=== PATIENT | female | born 1985 | race Caucasian/White ===

== ENCOUNTER → 2017-11-22 15:44 | Outpatient (CLI) | payer OTHER, SELFPAY ==
[2017-11-22 17:56] LABS: Absolute Lymphocyte Count 1.97 X10^3/ul (0.83-4.51); Absolute Neutrophil Count 3.7 X10^3/uL (2.0-7.7); Basophil# 0.02 X10^3/uL; Basophil% 0.3 % (0-1); Eosinophil# 0.26 X10^3/uL; Eosinophils% 4.1 % (0-5); Hematocrit 41.1 % (37-47); Hemoglobin 13.3 g/dl (12.0-15.0); Lymphocyte # 1.97 X10^3/ul (4.0); Lymphocyte % 31.1 % (19-41); Mean Corp Hgb Conc 32.4 g/gl (32-36); Mean Corpuscular Hgb 28.5 pg (27.0-32.0); Mean Corpuscular Volume 88.2 fL (81-99); Mean Platelet Vol. 11.6 fl (6.2-12.0); Monocyte# 0.42 X10^3/uL; Monocyte% 6.6 % (0-10); Neutrophil # 3.65 X10^3/uL (2.7-7.7); Neutrophil % 57.7 % (47-70); POSITIVE COUNT NO; POSITIVE DIFFERENTIAL NO; POSITIVE MORPHOLOGY NO; Platelet Count 256 K/mm3 (150-450); RBC Distribution Width CV 14.8 % (11.6-14.6); RBC Distribution Width SD 47.2 fl (35.1-43.9); Red Blood Count 4.66 M/mm3 (4.2-5.4); White Blood Count 6.3 K/mm3 (4.4-11.0)
[2017-11-22 18:13] LABS: AST(SGOT) 29 U/L (15-37); Alanine Aminotransfer ALT/SGPT 52 U/L (13-56); Albumin, Serum 3.8 g/dL (3.2-5.0); Alkaline Phosphatase 75 U/L (45-117); Anion Gap 7 (5-15); BUN 14 mg/dL (7-18); Chloride 103 mmol/L (98-107); EST Glomerular Filtration Rate 102 mL/min (>60); Est Glom Filt Rate - Afr Amer 123 mL/min (>60); Globulin 3.7 g/dL (2.2-4.2); Glucose 83 mg/dL (74-106); Potassium 3.7 mmol/L (3.5-5.1); Protein, Total 7.5 g/dL (6.4-8.2); Sodium Level 138 mmol/L (136-145)
== END ==
PROVIDERS: Family Provider Physician Assistant; PCP Physician Assistant; Visit Provider Internal Medicine Rheumatology
DX: M06.4 Inflammatory polyarthropathy (principal); M32.9 Systemic lupus erythematosus, unspecified; M25.561 Pain in right knee; Z79.899 Other long term (current) drug therapy
CPT/HCPCS: 36415; 80053; 85025

== ENCOUNTER → 2019-01-24 | Outpatient (CLI) | payer OTHER, SELFPAY ==
[2019-01-24 16:21] LABS: Bacteria 0 SEEN /hpf (None Seen); Mucous, Urine 0 SEEN /hpf (<or=2+); Red Blood Cells-Urine 0 SEEN /hpf (0-5); White Blood Cells 0 SEEN /hpf (0-5)
[2019-01-24 17:48] LABS: Hematocrit 42.9 % (37-47); Hemoglobin 13.7 g/dl (12.0-15.0); Mean Corp Hgb Conc 31.9 g/gl (32-36); Mean Corpuscular Hgb 27.2 pg (27.0-32.0); Mean Corpuscular Volume 85.3 fL (81-99); Mean Platelet Vol. 11.4 fl (6.2-12.0); Platelet Count 267 K/mm3 (150-450); RBC Distribution Width CV 15.1 % (11.6-14.6); RBC Distribution Width SD 46.6 fl (35.1-43.9); Red Blood Count 5.03 M/mm3 (4.2-5.4); White Blood Count 8.2 K/mm3 (4.4-11.0)
[2019-01-24 17:50] LABS: Scan Indicated on CBC? Y/N NO
[2019-01-24 17:56] LABS: Erythrocyte Sedimentation Rate 29 mm/hr (0-20)
[2019-01-24 18:01] LABS: Color, Urine Yellow (Yellow); Glucose, Dipstick Normal (Normal); Ketone-Dipstick Negative (Negative); Leukocyte Esterase-Dipstick Negative /ul (Negative); Nitrite-Dipstick Negative (Negative); Occult Blood-Urine Negative /ul (Negative); Protein-Dipstick Negative (Negative); Urine Bilirubin Dipstick Negative (Negative); Urine Clarity Sl. Cloudy (Clear); Urine Urobilinogen 1 mg/dl (Normal)
[2019-01-24 18:11] LABS: Squamous Epithelial Cells - UA 0-5 SEEN /hpf (5-10)
[2019-01-24 18:47] LABS: Vitamin B12 405 pg/mL (211-911); Vitamin D,25 Hydroxy 19.8 ng/mL (29.95-100.01)
[2019-01-24 18:55] LABS: ALB/GLOB Ratio 0.8 RATIO (0.9-2.4); AST(SGOT) 24 U/L (15-37); Alanine Aminotransfer ALT/SGPT 49 U/L (13-56); Albumin, Serum 3.5 g/dL (3.2-5.0); Alkaline Phosphatase 78 U/L (45-117); Anion Gap 8 (5-15); BUN 14 mg/dL (7-18); BUN/Creat Ratio 18.2 RATIO (10-20); CPK Total, Creatine Kinase 55 U/L (26-192); Calcium,Total 8.7 mg/dL (8.5-10.1); Chloride 105 mmol/L (98-107); Creatinine, Serum 0.77 mg/dL (0.55-1.02); EST Glomerular Filtration Rate 91 mL/min (>60); Est Glom Filt Rate - Afr Amer 110 mL/min (>60); Globulin 4.3 g/dL (2.2-4.2); Glucose 78 mg/dL (74-106); Potassium 3.6 mmol/L (3.5-5.1); Protein, Total 7.8 g/dL (6.4-8.2); Rheumatoid Factor < 10.0 IU/mL (<15); Sodium Level 139 mmol/L (136-145); Thyroid Stim Hormone (TSH) 2.21 uIU/mL (0.358-3.74); Uric Acid 6.2 mg/dL (2.6-6.0)
[2019-01-28 14:06] LABS: Vitamin D 1,25-Dihydroxy 63.1 pg/mL (19.9-79.3)
[2019-01-28 16:07] LABS: Albumin 3.5 g/dL (2.9-4.4); Alpha-1-Globulins 0.3 g/dL (0.0-0.4); Alpha-2-Globulins 0.9 g/dL (0.4-1.0); Gamma Globulin 1.4 g/dL (0.4-1.8); Immunoglobulin A 284 mg/dL (87-352); Immunoglobulin G 1140 mg/dL (700-1600); Immunoglobulin M 142 mg/dL (26-217); PROEL- TOTAL PROTEIN 7.2 g/dL (6.0-8.5)
[2019-01-29 16:00] LABS: ANTINUCLEAR ANTIBODIES DIRECT Positive (Negative)
[2019-01-31 16:07] LABS: Angiotensin Convert Enzyme 60 U/L (14-82); Complement C3 155 mg/dL (82-167); Cytoplasmic Ab (C-ANCA) <1:20 titer (Neg:<1:20); HEPATITIS B SURFACE AG Negative (Negative); Hepatitis A AB, Total Negative (Negative); Hepatitis A IgM Antibody Negative (Negative); Hepatitis B Core AB IgM Negative (Negative); Hepatitis B Core Ab Total Negative (Negative); Hepatitis C Ab <0.1 s/co ratio (0.0-0.9)
[2019-01-31 16:34] LABS: CCP IgG Antibodies > 250 units (0-19); HLA B27 Negative (.); Hep B Surface Antibodies Non Reactive (.); Perinuclear Ab (P-ANCA) <1:20 titer (Neg:<1:20); Vitamin B1, Thiamine 118.9 nmol/L (66.5-200.0); t-Transglutaminase IgA <2 U/mL (0-3)
== END | disposition home or self-care (01) ==
PROVIDERS: Family Provider Physician Assistant; PCP Physician Assistant; Referring Provider Internal Medicine Rheumatology; Visit Provider Internal Medicine Rheumatology
DX: M54.9 Dorsalgia, unspecified (principal); R20.2 Paresthesia of skin; M75.22 Bicipital tendinitis, left shoulder; M25.511 Pain in right shoulder; M25.512 Pain in left shoulder; G89.29 Other chronic pain; M89.9 Disorder of bone, unspecified; M94.9 Disorder of cartilage, unspecified; M77.01 Medial epicondylitis, right elbow; R29.898 Other symptoms and signs involving the musculoskeletal system; M25.531 Pain in right wrist; M75.50 Bursitis of unspecified shoulder; R53.83 Other fatigue; M32.9 Systemic lupus erythematosus, unspecified; E66.9 Obesity, unspecified; G56.01 Carpal tunnel syndrome, right upper limb; M79.641 Pain in right hand; Z79.1 Long term (current) use of non-steroidal anti-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 (NSAID); Z87.39 Personal history of other diseases of the musculoskeletal system and connective tissue
CPT/HCPCS: 36415; 80053; 81001; 81374; 82164; 82306; 82550; 82595; 82607; 82652; 82746; 82784; 83516; 83735; 84165; 84425; 84443; 84550; 85027; 85652; 86038; 86140; 86160; 86200; 86256; 86334; 86431; 86704; 86705; 86706; 86708; 86709; 86803; 87086; 87088; 87340

== ENCOUNTER → 2019-01-29 | Outpatient (CLI) | payer OTHER, SELFPAY ==
--- NOTE | 2019-01-29 16:00 | RAD_ITS ---
STUDY: X-RAY - RIGHT WRIST REASON FOR EXAM: Female, 33 years old. Pain TECHNIQUE: 2 view(s) of the wrist were obtained. COMPARISON: None. FINDINGS: There is no evidence of fracture or dislocation. There are no significant degenerative changes. There are no radiodense foreign bodies. RAD/Wrist 2 Views IMPRESSION: No fracture or dislocation. Electronically Signed: Fam Longo, at 17:10 EDT Tel , Service support ,
--- NOTE | 2019-01-29 16:00 | RAD_ITS ---
STUDY: X-RAY - LEFT ANKLE REASON FOR EXAM: Female, 33 years old. Pain TECHNIQUE: 2 view(s) of the ankle. COMPARISON: None. FINDINGS: There is no evidence of fracture or dislocation. Mild degenerative changes are present at the medial and lateral talar articulations. Hypertrophic changes are present at the Achilles tendon insertion. There are no radiodense foreign bodies. RAD/Ankle 2 Views IMPRESSION: No fracture or dislocation. Degenerative changes described above. Electronically Signed: Fam Longo, at 17:12 EDT Tel , Service support ,
--- NOTE | 2019-01-29 16:00 | RAD_ITS ---
STUDY: X-RAY - RIGHT SHOULDER REASON FOR EXAM: Female, 33 years old. Pain TECHNIQUE: 4 view(s) of the shoulder. COMPARISON: None. FINDINGS: There is no evidence of fracture or dislocation. There are no significant degenerative changes. There are no radiodense foreign bodies. RAD/Shoulder min 2 Views IMPRESSION: No fracture or dislocation. Electronically Signed: Fam Longo, at 17:07 EDT Tel , Service support ,
--- NOTE | 2019-01-29 16:00 | RAD_ITS ---
HISTORY: Back pain. Exam is 3 images of the SI joints. No comparisons. Findings: SI joints are symmetric. An IUD is present centrally within the pelvis likely within the uterine fundus. Degenerative disc disease with loss of disc height, endplate sclerosis, and small enthesophytes at the L4-L5 level. Hips appear normal. RAD/S-I Jts 3 or More Views IMPRESSION: Minimal SI joint arthritis. at 0222 Reported and signed by: Mikhail Pineda MD Electronically Signed: Mikhail Pineda MD at 2:21 EDT Tel , Service support ,
--- NOTE | 2019-01-29 16:00 | RAD_ITS ---
STUDY: X-RAY - RIGHT HAND REASON FOR EXAM: Female, 33 years old. Pain TECHNIQUE: 3 view(s) of the hand. COMPARISON: None. FINDINGS: There is no evidence of fracture or dislocation. There are no significant degenerative changes. There are no radiodense foreign bodies. RAD/Hand Min 3 Views IMPRESSION: No fracture or dislocation. Electronically Signed: Fam Longo, at 17:10 EDT Tel , Service support ,
--- NOTE | 2019-01-29 16:00 | RAD_ITS ---
STUDY: X-RAY - RIGHT ANKLE REASON FOR EXAM: Female, 33 years old. Pain TECHNIQUE: 2 view(s) of the ankle. COMPARISON: None. FINDINGS: There is no evidence of fracture or dislocation. Mild degenerative changes are present at the medial and lateral talar articulations. Hypertrophic changes are present at the Achilles tendon insertion. There are no radiodense foreign bodies. RAD/Ankle 2 Views IMPRESSION: No fracture or dislocation. Mild degenerative changes described above. Electronically Signed: Fam Longo, at 17:11 EDT Tel , Service support ,
--- NOTE | 2019-01-29 16:00 | RAD_ITS ---
HISTORY: back pain COMPARISON: None FINDINGS: # of images incl. paperwork: 5 XR Spine Lumbar 5 Views: An IUD is present centrally within the pelvis, likely within the uterine fundus Lumbar vertebral bodies are normal in height. Lumbar disc spaces are well maintained. No acute lumbar spine fracture or subluxation. There is loss of intervertebral disc height at the L4-L5 and L5-S1 levels. There is also some loss of disc height at the T11-T12 level. Very small enthesophytes are present anteriorly at the inferior endplate of L4, and the superior endplate of L5 RAD/L/S Spine Min 4 Views IMPRESSION: No acute lumbar spine fracture or subluxation. Mild degenerative disc disease, greatest at the L4-L5 level. at 0221 Reported and signed by: Mikhail Pineda MD Electronically Signed: Mikhail Pineda MD at 2:20 EDT Tel , Service support ,
--- NOTE | 2019-01-29 16:00 | RAD_ITS ---
STUDY: X-RAY - LEFT SHOULDER REASON FOR EXAM: Female, 33 years old. Pain TECHNIQUE: 4 view(s) of the shoulder. COMPARISON: None. FINDINGS: There is no evidence of fracture or dislocation. There are no significant degenerative changes. There are no radiodense foreign bodies. RAD/Shoulder min 2 Views IMPRESSION: No fracture or dislocation. Electronically Signed: Fam Longo, at 17:09 EDT Tel , Service support ,
== END | disposition home or self-care (01) ==
LOC: MTRAD 15:52
PROVIDERS: Family Provider Physician Assistant; PCP Physician Assistant; Referring Provider Internal Medicine Rheumatology; Visit Provider Internal Medicine Rheumatology
DX: M54.9 Dorsalgia, unspecified (principal); R20.2 Paresthesia of skin; M75.22 Bicipital tendinitis, left shoulder; G89.29 Other chronic pain; M25.511 Pain in right shoulder; M25.512 Pain in left shoulder; M89.9 Disorder of bone, unspecified; M94.9 Disorder of cartilage, unspecified; M77.01 Medial epicondylitis, right elbow; M25.521 Pain in right elbow; R29.898 Other symptoms and signs involving the musculoskeletal system; M25.531 Pain in right wrist; M75.50 Bursitis of unspecified shoulder; R53.83 Other fatigue; Z87.39 Personal history of other diseases of the musculoskeletal system and connective tissue; M32.9 Systemic lupus erythematosus, unspecified; Z79.1 Long term (current) use of non-steroidal anti-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 (NSAID); E66.9 Obesity, unspecified; G56.01 Carpal tunnel syndrome, right upper limb; M25.571 Pain in right ankle and joints of right foot; M25.572 Pain in left ankle and joints of left foot; M79.641 Pain in right hand
CPT/HCPCS: 72110; 72202; 73030; 73100; 73130; 73600

== ENCOUNTER 2022-08-05 07:16 | Day surgery (SDC) | payer OTHER, SELFPAY ==
[2022-08-05 07:56] LABS: Internal QC Validated? YES +Cl - CLEAR BKGD; Pregnancy, Urine Negative Negative
[2022-08-05 08:01] VITALS: BP 124/91; PULSE 72; RESP 16; TEMP 36.6; O2SAT 97; BMI 34.0
[2022-08-05] MEDS: Lactated Ringers 1,000 ML 15 ML IV (08:07)
--- NOTE | 2022-08-05 08:41 | PCM.HP.BLA ---
History and Physical Date of Admission: 08/05/22 Date of Service:? 07/29/22 MR#: [id number] Acct: [id number] Name:CODI STAUFFER Rep #: [id number] : 1985 ? ? Provider: Dr. Diego Yoon MD Age/Sex:? 37/F ? ? [place] [facility] [place] Status: Signed with Addenda ADDENDUM by Dr. Diego Yoon MD on 07/29/22 at 1725 Intake Chief Complaint: perineal abcess Allergies etanercept [From Enbrel] Allergy (Mild, Verified 11/25/21 09:21) Other Medications Hydrocortisone 2.5%/lidocaine 5% suppository (cmpd) (hydrocortisone 2.5%/lidocaine 5% suppository (compound)) #25 ea 11/12/21 [Rx Confirmed 07/29/22] allopurinol 100 mg tablet 100 mg PO BID 11/12/21 [History Confirmed 07/29/22] cholecalciferol (vitamin D3) 125 mcg (5,000 unit) capsule 125 mcg PO DAILY 11/12/21 [History Confirmed 07/29/22] colchicine 0.6 mg tablet 0.6 mg PO DAILY 11/12/21 [History Confirmed 07/29/22] folic acid 1 mg tablet 1 mg PO DAILY 11/12/21 [History Confirmed 07/29/22] gabapentin 100 mg capsule (Neurontin) 100 mg PO DAILY 11/12/21 [History Confirmed 07/29/22] methotrexate (PF) 7.5 mg/0.15 mL subcutaneous auto-injector 7.5 mg subcut QWEEK 11/12/21 [History Confirmed 07/29/22] rivaroxaban 20 mg tablet (Xarelto) 20 mg PO DAILY 11/12/21 [History Confirmed 07/29/22] Assessment and Plan Assessment and Plan (1) Anal fistula: ?Status:?Resolved ?Comment: This is a 37-year-old female with a history of perirectal abscess and fistula in ano treated remotely 12 to 15 years ago with fistulotomy at [facility] who presents with 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 This area appears to be freely draining posteriorly.? At this time she remains on Xarelto anticoagulation and I am reluctant to perform much intervention with this bleeding risk.? Furthermore, I have suggested we proceed for exam under anesthesia to determine if there is an internal opening to this fistula that may be looped with a seton drain.? In the interim I have cautioned the patient against signs and symptoms of perirectal abscess and urged her to present for emergent evaluation should she experience any of these issues.? Should the above exam under anesthesia be unfruitful, patient may require referral to dedicated colorectal specialist given her history of prior incidence. Comments Comments: I did have a conversation with patient regarding her increased risk for anorectal problems/abscesses and that this risk is heightened by her chronic use of tobacco. 07/29/221724 <Electronically signed by Diego Yoon MD> Date Diego Yoon MD cc: ? YOHANA Mccollum ~* Signed Intake Vital Signs ? 07/29/2214:15 Respiration 17 Pulse 64 Pulse Source Monitor Temp 98 F Temp Source Oral Pulse Oximetry (%) 99 Oxygen Delivery Method room air Intake Visit Reasons:?PERINEAL ABSCESS Chief Complaint: perineal abcess Allergies etanercept [From Enbrel] Allergy (Mild, Verified 11/25/21 09:21) Other Medications Hydrocortisone 2.5%/lidocaine 5% suppository (cmpd) (hydrocortisone 2.5%/lidocaine 5% suppository (compound)) #25 ea 11/12/21 [Rx Confirmed 07/29/22] allopurinol 100 mg tablet 100 mg PO BID 11/12/21 [History Confirmed 07/29/22] cholecalciferol (vitamin D3) 125 mcg (5,000 unit) capsule 125 mcg PO DAILY 11/12/21 [History Confirmed 07/29/22] colchicine 0.6 mg tablet 0.6 mg PO DAILY 11/12/21 [History Confirmed 07/29/22] folic acid 1 mg tablet 1 mg PO DAILY 11/12/21 [History Confirmed 07/29/22] gabapentin 100 mg capsule (Neurontin) 100 mg PO DAILY 11/12/21 [History Confirmed 07/29/22] methotrexate (PF) 7.5 mg/0.15 mL subcutaneous auto-injector 7.5 mg subcut QWEEK 11/12/21 [History Confirmed 07/29/22] rivaroxaban 20 mg tablet (Xarelto) 20 mg PO DAILY 11/12/21 [History Confirmed 07/29/22] [facility] Medical History? Anal fistula DVT (deep vein thrombosis) in Gout Lupus Rheumatoid arthritis Surgical History? History of rectal surgery Social History? Smoking Status:? Current every day smoker alcohol intake:? current alcohol intake frequency: a few times a month HPI HPI HPI: Patient is a 37-year-old female who presents for perineal abscess.? They are referred from most [facility].? Patient states that she believes this drainage started 2 weeks ago when she was at work and felt something bust and then had bloody pants.? She reports drainage that is variably clear, orange, or yellowish.? She denies any foul odor to this drainage.? She states she has an exceptionally difficult time seeing where it is coming from.? She does report a history of prior perirectal abscess drained in [place] and fistulotomy at [facility] 12 to 15 years ago.? She also reports a colonoscopy within the last 2 years where 18 polyps were found?she confirms most of these were hyperplastic.? She has no personal history of inflammatory bowel disease, but does have a first cousin on her paternal side with Crohn's.? She reports her own bowel movements occur approximately 1 time per day but the consistency is highly variable.? She denies any observation of blood.? She states that since her treatment of perirectal abscesses, she has seen providers for concerns of hemorrhoids (Dr. uTrner) and anal fissure.? Regarding the latter, she states that she has been prescribed a cream and a suppository and this provided temporary relief that ultimately did not last.? She continues to experience some burning in this area with bowel movements. Patient has a history of DVT 2 to 4 years ago.? She is prescribed scribed Xarelto for a history of lupus anticoagulant.? She states that this is now managed by [facility].? She denies ever having held this medication for another procedure. Lastly confirms a history of tobacco use.? She states that she is averaged approximately 1 pack/day over the last 20 years. ROS General General: Yes weight change; No appetite, fatigue, colon cancer or breast cancer HEENT HEENT: No difficulty swallowing, eye injury, eye surgery, swollen glands or hoarseness Endo Endocrine: No thyroid disease, diabetes mellitus, thyroid cancer, Hair loss, heat intolerance or cold intolerance Skin Skin: No rash or changing moles Musc Musculoskeletal: Yes rheumatoid arthritis; No back problems, arthritis, gout or joint pain Cardio Cardiovascular: No murmur, pacemaker, heart disease, atrial fibrillation, high blood pressure, heart attack, heart stent, palpitations, shortness of breat with exertion or chest pain Psych Psychiatric: No depression, anxiety or hearing voices Gastro Gastrointestinal: No abdominal pain, No nausea or vomiting, No diarrhea, No constipation, No blood in stool, No acid reflux, Yes hemorrhoids, No ulcers, No gallbladder problem and No black,tarry stools [place] Hematologic: Yes blood thinners and Yes blood clots Additional Details: h/o leg clot Neuro Neurologic: Yes system reviewed and no additional complaints, except as documented Exam Const General: cooperative and anxious Orientation: alert, awake and oriented x3 GI Inspection: obesity and no visible herniation Palpation: soft Rectal Exam: normal sphincter tone, tenderness (Right lower quadrant), visual inspection abnormal fissure (Posteriorly) and other (Draining perirectal opening directly posteriorly with thin brown fluid) and other (Patient with moderate tenderness with palpation during digital rectal ) Assessment and Plan Assessment and Plan (1) Anal fistula: ?Status:?Resolved ?Comment: This is a 37-year-old female with a history of perirectal abscess and fistula in ano treated remotely 12 to 15 years ago with fistulotomy at [facility] who presents with 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 This area appears to be freely draining posteriorly.? At this time she remains on Xarelto anticoagulation and I am reluctant to perform much intervention with this bleeding risk.? Furthermore, I have suggested we proceed for exam under anesthesia to determine if there is an internal opening to this fistula that may be looped with a seton drain.? In the interim I have cautioned the patient against signs and symptoms of perirectal abscess and urged her to present for emergent evaluation should she experience any of these issues.? Should the above exam under anesthesia be unfruitful, patient may require referral to dedicated colorectal specialist given her history of prior incidence. ?Plan: ? Seek approval for [facility] hold ? Arrange for exam under anesthesia with possible seton placement I have examined the patient and the H&P has been reviewed. There are no clinical changes since date of exam. I reviewed expectations with the patient and her spouse. We will plan for exam under anesthesia. If an internal anal opening is found we will place a seton drain, otherwise I would not plan to proceed further as patient has a history of prior fistulotomy and did not want to incur risk for either anal stenosis or sphincter incompetence. Patient expressed an understanding of this information. Therefore we will proceed to the operating room for exam as discussed above.
[2022-08-05] MEDS: Cefazolin 2 GM in 0.9% Normal Saline 100 ML IV (09:10)
[2022-08-05 10:35] VITALS: BP 124/91; BP 145/90; PULSE 82; RESP 20; TEMP 36.3; O2SAT 88
[2022-08-05 10:45] VITALS: BP 124/91; BP 151/86; PULSE 66; RESP 18; O2SAT 100
[2022-08-05 11:00] VITALS: BP 124/91; BP 143/83; PULSE 76; RESP 18; O2SAT 96
--- NOTE | 2022-08-05 11:10 | PCM.OPRPT ---
Report of Operation Date of Procedure: 08/05/22 Pre-Operative Diagnosis: 1. Fistula in ano 2. History of fistula in anal status post prior fistulotomy Post-Operative Diagnosis: Same Surgery/Procedure Performed:: 1. Anorectal exam under anesthesia 2. Partial unroofing of fistula tract Description of Surgical Findings:: ? Demonstration of fistula track towards the anal canal and a Ross sphincteric course exceeding 6.5 cm in length. No internal anal opening could be demonstrated Surgeon: Diego Yoon orange picking supervisor: Keyla Tran Type of Anesthesia: General/Supplemental Anesthesiologist: Luis Eduardo Marques Specimen's removed: N/A Drains: N/A Estimated Blood Loss (mL): 10 Description of Procedure: After appropriate identification in the preoperative holding area the patient was brought to the operating room where she was positioned supine. She was administered preoperative antibiotics and induced with a general endotracheal anesthetic. She was then repositioned in lithotomy with leg holders. Her vulva, perineal area and perianal area were prepped and draped. A formal timeout was conducted to confirm the patient and the procedure to be performed. The procedure was begun with insertion of a lubricated Bryan-Sheron retractor. This retractor was oriented in such a way as to expose the inner aspect of the anal canal subjacent the patient's chronic wound posteriorly. Immediately I noticed a break in the patient's anoderm posteriorly where it appeared there is just exposed sphincter muscle. I assume this to represent patient's prior fistulotomy tract. The external opening for the anal fistula was located at the 6 o'clock position approximately a centimeter and a half from the anus. I then used a series of lacrimal probes to probe the wound and assess whether there was tracking towards the canal. The probe passed a distance of 2 cm, but no further despite multiple diameter probes. I then did a second fistula test by inserting a 14-gauge angiocatheter attached to a syringe of hydrogen peroxide. The tip of the angiocatheter, likewise, did not pass beyond this depth and when I injected the sinus with hydrogen peroxide I was unable to visualize any bubbling within the anal canal. Therefore this attempt was abandoned and I tried once more with the lacrimal probes. This time, not exerting any additional pressure, the probe advanced an additional 4 cm towards the anal canal. At this distance I was not able to see into the anal canal even with repositioning Hill-Holbrook retractor, but inserting a gloved finger I could feel the lacrimal probe just beneath the mucosa. Unfortunately despite multiple attempts at redirecting the probe I was not able to demonstrate an internal opening. I made an additional attempt at injecting the tract with hydrogen peroxide and again could not visualize hydrogen peroxide within the anal canal. I did observe that this fistula tract appeared to be transphincteric in its course and a scented for a distance of 6.5 cm?to the furthest reach of our medium size lacrimal probe. In an effort to promote better drainage of the patient's wound and hopefully remove some of the epithelialization, I chose to unroofed part of the fistula tract as it approached the sphincter complex sharply. I then performed a curettage of the inner lining of the patient's sinus tract. To assist with patient's postoperative discomfort, I instilled a total volume of 30 mL's of 0.25% plain bupivacaine as a intersphincteric and pudendal block. To facilitate hemostasis, the cavity was packed with quarter inch iodoform gauze. Lastly 3 gauze rolls were made and taped as a compressive/absorbent dressing over the patient's surgical site. Case was then concluded and the patient was awakened and transferred to PACU for ongoing recovery. Complications None Admit VTE Documentation VTE Mechan Device Prophylaxis: SCD's Procedures Digestive [id number]-[id number]: 05605 Surg dx exam anorectal
[2022-08-05 11:14] VITALS: BP 124/91; BP 150/85; PULSE 67; RESP 18; TEMP 36.4; O2SAT 95
--- NOTE | 2022-08-05 11:41 | DCINST_ITS ---
Discharge Instructions Diet Discharge Diet: No restrictions Activity Discharge Activity: May Not Drive (No driving while using narcotic pain medication) and May Shower Dressing / Incision Call your doctor if your incision/area has: Continuous Slow Oozing, Sudden Increased Bleeding, Increased Redness and Foul Smelling Discharge Call your doctor if you observe: Fever of 101 or Higher Change Dressing in: 1 day Remove Dressing in: 1 day (Remove packing strip tomorrow) Cleanse incision/area with: Soap & Water and - (Recommend twice daily sitz bath's and after bowel movements. Dry thoroughly) Follow Up Care Please Follow Up With: Diego Yoon MD When: 7 to 10 days postop Test Results: Test results from this visit will be discussed in further detail at your follow- up appointment, if applicable. Discharge Plan Admission Primary Reason for Your Visit: Anal fistula Attending Provider: Diego Yoon Primary Care Provider: Klarissa Mccollum Instructions Additional Instructions / Restrictions: Patient should plan to do sitz bath's twice daily. May add Epson salts to warm water. Recommend drying thoroughly. Patient should keep a pad in her underwear to collect any drainage for the first couple days postop. Patient should ensure complete hygiene following bowel movements as well. If narcotic pain medication is required, recommend initiation of laxative agent alongside of this to avoid constipation. Discharge Orders/Prescriptions Prescriptions: New oxycodone 5 mg tablet 5 mg PO Q6H PRN (Reason: pain) 3 Days Qty: 14 0RF Continued cholecalciferol (vitamin D3) 125 mcg (5,000 unit) capsule 125 mcg PO DAILY Xarelto 20 mg tablet 20 mg PO DAILY Rx Instructions: must administer with evening meal (DME) hydrocortisone 2.5%/lidocaine 5% suppository (compound) Suppository See Rx Instructions .ROUTE .MEDSUPPLY Qty: 25 1RF Rx Instructions: As directed bupropion HCl [Wellbutrin SR] 150 mg Tablet Sustained-Release 12 Hr 150 mg PO BID omeprazole magnesium [Prilosec OTC] 20 mg Tablet,Delayed Release (Dr/Ec) 20 mg PO DAILY Referrals / Follow Up: Klarissa Mccollum PA [Primary Care Provider] - Disposition Disposition (needs filled in before D/C Order can be placed): Home, Self Care
[2022-08-05 12:00] VITALS: BP 121/78; BP 124/91; PULSE 68; RESP 16; TEMP 36; O2SAT 99
== END 2022-08-05 12:19 | disposition home or self-care (01) ==
LOC: SDC 07:16 → AC 07:17
PROVIDERS: Anesthesiology; PCP Physician Assistant; Referring Provider Surgery; Visit Provider Surgery
PROC: (CPT 45990; principal; 2022-08-05 08:45)
DX: K61.1 Rectal abscess (principal); M32.9 Systemic lupus erythematosus, unspecified; M06.9 Rheumatoid arthritis, unspecified; K64.9 Unspecified hemorrhoids; F17.210 Nicotine dependence, cigarettes, uncomplicated; L02.215 Cutaneous abscess of perineum; K21.9 Gastro-esophageal reflux disease without esophagitis
CPT/HCPCS: 45990; 00902; 81025; J7120; J2405

== ENCOUNTER 2023-08-24 13:58 | Emergency (ER) | payer OTHER, SELFPAY ==
[2023-08-24 13:59] VITALS: BP 172/102; PULSE 94; RESP 16; TEMP 36.4; O2SAT 100; BMI 46.8
[2023-08-24 14:46] LABS: ALB/GLOB Ratio 0.9 RATIO (0.9-2.4); AST(SGOT) 23 U/L (15-37); Alanine Aminotransfer ALT/SGPT 42 U/L (13-56); Albumin, Serum 3.4 g/dL (3.2-5.0); Alkaline Phosphatase 75 U/L (45-117); Anion Gap 7 (5-15); BUN 10 mg/dL (7-18); BUN/Creat Ratio 12.7 RATIO (10-20); Calcium,Total 8.8 mg/dL (8.5-10.1); Chloride 105 mmol/L (98-107); Creatinine, Serum 0.78 mg/dL (0.55-1.02); EST Glomerular Filtration Rate 87 mL/min (>60); Est Glom Filt Rate - Afr Amer 105 mL/min (>60); Estimated Creatinine Clearance 139.43 ml/min; Globulin 3.9 g/dL (2.2-4.2); Glucose 182 mg/dL (74-106); Potassium 3.6 mmol/L (3.5-5.1); Protein, Total 7.3 g/dL (6.4-8.2); Sodium Level 140 mmol/L (136-145)
[2023-08-24 14:47] LABS: Absolute Lymphocyte Count 1.64 X10^3/uL (0.83-4.51); Basophil# 0.03 X10^3/uL; Basophil% 0.5 % (0-1); Eosinophil# 0.17 X10^3/uL; Eosinophils% 2.8 % (0-5); Hematocrit 38.9 % (37-47); Hemoglobin 12.8 g/dL (12.0-15.0); Lymphocyte # 1.64 X10^3/ul (0.83-4.51); Lymphocyte % 26.5 % (19-41); Mean Corp Hgb Conc 32.9 g/dL (32-36); Mean Corpuscular Volume 91.1 fL (81-99); Monocyte# 0.29 X10^3/uL; Monocyte% 4.7 % (0-10); NRBC Flagged by Analyzer 0 % (0-5); Neutrophil # 4.02 X10^3/uL (2.7-7.7); Platelet Count 259 K/mm3 (150-450); RBC Distribution Width CV 14.5 % (11.6-14.6); RBC Distribution Width SD 48.3 fl (35.1-43.9); Red Blood Count 4.27 M/mm3 (4.2-5.4); White Blood Count 6.2 K/mm3 (4.4-11.0)
[2023-08-24 15:07] LABS: BNP,B-Type NATRIURETIC PEPTIDE 36.2 pg/mL (0-100)
--- NOTE | 2023-08-24 15:16 | EDS_ITS ---
HPI History of Present Illness Chief Complaint: Edema Informant: patient Onset/Context/Timing Onset: Month(s) Context: Gradual Onset Timing: Continuous Maximum Severity: Mild Narrative Narrative: 38-year-old female history of lupus and rheumatoid arthritis. States for the last month and a half she has had increased swelling with about 24 pound weight gain. Says she is more short of breath. Denies chest pain. Denies fever. Denies vomiting. History of prior DVT she is currently on Eliquis. No cardiac history. No history of kidney disease. No history of liver failure. Prior similar symptoms: No Recent Illness/Hospitalization: No PFSH PFSH Medical History Alcohol use Anal fistula DVT (deep vein thrombosis) in Gastric reflux Gout History of ulceration Lupus Rheumatoid arthritis Smoker Home Medications Hydrocortisone 2.5%/lidocaine 5% suppository (cmpd) (hydrocortisone 2.5%/lidocaine 5% suppository (compound)) #25 ea 11/12/21 [Rx Last Taken Unknown] rivaroxaban 20 mg tablet (Xarelto) 20 mg PO DAILY 11/12/21 [History Last Taken 08/02/22] omeprazole magnesium 20 mg tablet,delayed release (Prilosec OTC) 20 mg PO DAILY 08/03/22 [History Last Taken Unknown] allopurinol 300 mg tablet 450 mg PO DAILY 08/24/23 [History Last Taken Unknown] lisinopril 10 mg tablet 10 mg PO DAILY 08/24/23 [History Last Taken Unknown] spironolactone 25 mg tablet 25 mg PO DAILY 08/24/23 [History Last Taken Unknown] Allergy/AdvReac Type Severity Reaction Status Date / Time etanercept [From Enbrel] Allergy Mild Other Verified 08/24/23 14:01 Surgical History History of rectal surgery History of rectal surgery Social History Smoking Status: Former smoker alcohol intake: current alcohol intake frequency: a few times a month ROS ROS ED ROS Narrative Swelling. Shortness of breath. Review of Systems ROS Unobtainable: Denies due to encephalopathy Constitutional Constitutional ED: Denies chills or fever(s) Eyes Eyes: Denies blurry vision ENT ENT ED: Denies ear pain Cardiovascular Cardiovascular: Denies chest pain or palpitations Respiratory/Chest Respiratory/Chest: Reports dyspnea and dyspnea on exertion; Denies cough Gastrointestinal Gastrointestinal: Denies abdominal pain, constipation or diarrhea Genitourinary Genitourinary ED: Denies dysuria or hematuria Musculoskeletal Musculoskeletal: Denies arthralgias Integumentary Denies abscess or Abrasions Neurologic Neurologic: Denies headache(s) Psychiatric Psychiatric: Denies anxiety or depression Endocrine Endocrinology: Denies cold intolerance Hematologic/Lymphatic Hematologic/Lymphatic: Reports none; Denies easy bruising Allergic/Immunologic Allergic/Immunologic ED: Denies mouth swelling, tongue swelling or urticaria EXAM Physical Exam Narrative Exam Narrative: 38-year-old female no acute distress. Vital signs are stable afebrile. Pulse ox 100% on room air no hypoxia. Blood pressure is elevated 172/102. She does not look septic toxic. She is in no distress. HEENT exam unremarkable. Neck nontender. Lungs clear to auscultation bilaterally. Heart regular rhythm rate about 95 no murmur. Chest wall and ribs nontender. Abdomen soft nontender. Moving all 4 extremities. 1+ pitting edema bilaterally lower extremities. Calves are nontender without edema. Neurologically she is awake and alert with no focal motor deficits. Const Vital Signs: 08/24/23 13:59 Temperature 97.6 F L Temperature Source Temporal Pulse Rate 94 Respiratory Rate 16 Blood Pressure 172/102 H Blood Pressure Mean 125 Pulse Ox 100 Oxygen Delivery Method Room Air Positive well nourished, well developed and obese; Negative for cachectic, contractures or unkempt General Appearance ED: well developed and NAD; Negative for unkempt, cachectic, contractures, cyanotic, diaphoretic or pallor Nutritional Appearance: obese; Negative for cachectic HEENT Reports moist mucous membranes Negative for trauma or tenderness Eyes PERRL and EOMs intact bilaterally General Eye ED: Negative for pale conjunctiva or scleral icterus Neck no lymphadenopathy, supple and no JVD General: Negative for tenderness Lymph Lymphatic: Negative for other Chest Wall inspection of chest normal and palpation of chest normal Chest: Negative for other Resp normal respiratory effort and clear to auscultation bilaterally Effort and Inspection: Negative for retractions Auscultation: Negative for rales, rhonchi or wheezes Cardio regular rate, regular rhythm, S1 normal heart sound, S2 normal heart sound and no murmurs Palpation: Negative for palpable S3 or palpable S4 Rate: Negative for bradycardia or tachycardic Rhythm: Negative for abnormal rhythm GI normal to inspection, nondistended, normoactive bowel sounds, non-tender, non- distended and no masses Inspection: Negative for abdominal distention Auscultation: normoactive bowel sounds Palpation: Negative for soft, tender or guarding Back/Spine no CVA tenderness General Back: Negative for CVA tenderness Cervical Spine: Negative for cervical spine tenderness Thoracic Spine / Upper Back: Negative for thoracic spinal tenderness Extremity Negative for normal to inspection General Extremety ED: Yes edema; Negative for tenderness General Extremity: edema Neuro oriented x3 and CN's II-XII intact bilaterally Sensorium / Orientation: alert; Negative for orientation impaired, lethargic or stuporous Motor Exam: strength 5/5 throughout Psych mental status grossly normal Appearance: Negative for unkempt Attitude: No agitated Mood & Affect: Negative for depressed, anxious or tearful Skin no rashes or lesions noted, no wounds and skin turgor normal General Skin Exam: Negative for elasticity normal, jaundice or pallor Lesions: No lesion noted Rashes: No rashes noted Trauma: Negative for abrasion Wounds: Negative for wounds noted MDM MDM MDM Narrative Medical decision making narrative: 38-year-old female with a 24 pound weight gain over the last month and a half and retaining fluid in her legs and throughout her body. No history of cardiac disease or kidney disease. History of lupus and rheumatoid arthritis. Screening labs, EKG and chest x-ray being obtained. She is on a blood thinner Eliquis. Repeat exam patient is doing well at 5:40 PM. Her labs are unremarkable I do not have a specific cause for her edema at this time she will be referred. To her primary care physician for further evaluation. History & Record Review Discussion w/independent historian: Patient Additional record(s) reviewed:: Prior inpatient record, Prior outpatient record, Prior ED visit and Prior labs Lab Data Attestation: I reviewed the patient's lab results. Lab results narrative: CBC unremarkable. White count is 6. H&H 12 and 38. Platelets 259. Electrolytes show gap of 7. Glucose 182. Normal BUN of 10 and creatinine 0.78. Glucose 182. Liver enzymes are normal. TSH is normal at 1.74. Chest x-ray is unremarkable. Labs: Laboratory Results - last 24 hr 08/24/23 14:15 WBC 6.2 RBC 4.27 Hgb 12.8 Hct 38.9 MCV 91.1 MCH 30.0 MCHC 32.9 RDW Std Deviation 48.3 H RDW Coeff of [place] 14.5 Plt Count 259 MPV 10.0 Immature Gran % (Auto) 0.500 Neut % (Auto) 65.0 Lymph % (Auto) 26.5 [place] % (Auto) 4.7 Eos % (Auto) 2.8 Baso % (Auto) 0.5 Absolute Neuts (auto) 4.0 Absolute Lymphs (auto) 1.64 Nucleated RBC % 0 Sodium 140 Potassium 3.6 Chloride 105 Carbon Dioxide 28.0 Anion Gap 7 BUN 10 Creatinine 0.78 Estim Creat Clear Calc 139.43 Est GFR (MDRD) Af Amer 105 Est GFR (MDRD) Non-Af 87 BUN/Creatinine Ratio 12.7 Glucose 182 H Calcium 8.8 Total Bilirubin 0.30 AST 23 ALT 42 Alkaline Phosphatase 75 B-Natriuretic Peptide 36.2 Total Protein 7.3 Albumin 3.4 Globulin 3.9 Albumin/Globulin Ratio 0.9 TSH 1.74 Radiography Chest X-Ray - ED: 1 View, Read by ED Physician, Read by Radiologist, Lungs, Mediastinum, Bony Structures, No Acute Disease and Chronic Changes Diagnostic Testing: Clinical Impression(s) from Imaging Studies Chest X-Ray 08/24/23 15:50 IMPRESSION: No acute radiographic abnormalities. Electronically Signed: Rex Francisco MD at 16:16 EST Reading Location ID and State: [address] [place] [address] Tel , Service support , Chest x-ray, portable, single view interpreted by myself and radiologist shows no acute abnormality. Normal cardiac silhouette. No effusions. No failure. Rhythm Strip Rhythm Strip: Sinus Rhythm Rate: 74 Ectopy: None EKG Initial EKG: Attestation: I personally reviewed and interpreted this EKG as follows: Interpretation: Sinus Rhythm and No Acute Injury Pattern Comments: Sinus rhythm rate of 74 no acute signs of [place] or ischemia. Incomplete right bundle branch block. Discharge Plan Triage Chief Complaint: Edema ED Provider: Cornelio Petit Dx/Rx/DC Orders Prescriptions: No Action Xarelto 20 mg tablet 20 mg PO DAILY Rx Instructions: must administer with evening meal (DME) hydrocortisone 2.5%/lidocaine 5% suppository (compound) Suppository See Rx Instructions .ROUTE .MEDSUPPLY Qty: 25 1RF Rx Instructions: As directed omeprazole magnesium [Prilosec OTC] 20 mg Tablet,Delayed Release (Dr/Ec) 20 mg PO DAILY lisinopril 10 mg tablet 10 mg PO DAILY allopurinol 300 mg tablet 450 mg PO DAILY spironolactone 25 mg tablet 25 mg PO DAILY Rx Instructions: stopped taking Primary Care Provider: Klarissa Mccollum Referrals: Klarissa Mccollum PA [Primary Care Provider] -
--- NOTE | 2023-08-24 15:27 | NURSING ---
NO OLD EKGS
--- NOTE | 2023-08-24 15:50 | RAD_ITS ---
INDICATION: sob EXAMINATION/TECHNIQUE: X-RAY - XR Chest 1 View COMPARISON: 05/15/2017. FINDINGS: The lungs are clear. The cardiomediastinal silhouette is unremarkable. No pleural effusion or pneumothorax. No acute osseous abnormalities. RAD/Chest 1 View (Portable) IMPRESSION: No acute radiographic abnormalities. Electronically Signed: Rex Francisco MD at 16:16 EST ,
[2023-08-24 16:10] LABS: Thyroid Stim Hormone (TSH) 1.74 uIU/mL (0.358-3.74)
== END 2023-08-24 18:11 | disposition home or self-care (01) ==
PROVIDERS: Emergency Provider Emergency Medicine; PCP Physician Assistant; Visit Provider Emergency Medicine
DX: R60.9 Edema, unspecified (principal); M06.9 Rheumatoid arthritis, unspecified; Z87.891 Personal history of nicotine dependence; Z86.718 Personal history of other venous thrombosis and embolism; Z79.01 Long term (current) use of anticoagulants; Z79.899 Other long term (current) drug therapy; E66.9 Obesity, unspecified; R06.02 Shortness of breath
CPT/HCPCS: 71045; 80053; 83880; 84443; 85025; 93005; 99282; A4216

== ENCOUNTER → 2023-09-13 | Outpatient (CLI) | payer OTHER, SELFPAY ==
--- OUTSIDE RECORDS SUMMARY | 2023-09-13 16:25 | XMS RPT_ITS | CCD ---
Author Name Unknown Address [address] [place] [address] Organization [facility] Care Team Providers Care Bisque Placer Name Role Phone Brianna Mccollum Primary Care Provider RISA MONTANEZ Attending Unavailable RISA MONTANEZ Primary Care Unavailable RISA MONTANEZ Admitting Unavailable RUPERT SANTOYO Attending Unavail able SIMA MCCOLLUMISSA J Primary Care Unavailable Mccollum, Brianna J Primary Care Provider MccollumSimaBrianna Unavailable Catarino Crouch Unavailable Dr. Catarino Crouch Attending Unavail able Ms. Brianna Mccollum Primary Care Unavailable Mccollum PA-C, Brianna J Primary Care Provider Mccollum PA-C, Brianna J Unavailable Mccollum, Brianna J Primary Care Provider Mccollum PA-C, Brianna J Unavailable Mccollum PA-C, Brianna J Unavailable General Surgery Provider Unavailable Unavail able [facility] Unavailable Rheumatolgy Provider Unavailable Unavailable Orthopedic Provider Unavailable Unavailable Dr. Sheba Mauricio MD Unavailable Hematology Provider Unavailable Unavailable Dr. Risa Montanez MD. Unavailable Indu Dahl LPN Unavailable Singh PA-C, Jessica J Unavailable Henrietta Lee LPN Unavailable Unavailable Ananya Huerta MA Unavailable Unavailable Uyen Adames LPN Unavailable Unavailable Cononr Da Silva MD Unavailable Humberto BAKER, Gertrudis Morales Unavailable Unavaila ble Mutersbaugh DOSIMETRIST, Shelby Barros Unavailable Unavai lable Chinedu DOSIMETRIST, Haydee Conti Unavailable Unavailab le Wengerd DOSIMETRIST, Elle Unavailable Unavailabl e Corby DOSIMETRIST, Heather Mckinley Unavailable Unavaila ble Unavailable Unavailable CHRISTINA AWAD Referring Unavailable MCCOLLUM, BRIANNA J Primary Care Unavailable RANI BARAJAS Attending Unavailable MCCOLLUM, BRIANNA J Primary Care Unavailable STAINBROOK JR.KEREN Referring Unavaila ble STAINBROOK JR., KEREN Mckinney Attending Unavaila ble SELF, SELF Referring Unavailable MCCOLLUM, BRIANNA J Primary Care Unavailable STAINBROOK JR., KEREN Mckinney Attending Unavaila ble MCCOLLUM, BRIANNA J Primary Care Unavailable STAINBROOK JR., KEREN Mckinney Attending Unavaila ble STAINBROOK JR.KEREN Referring Unavaila ble MCCOLLUM, BRIANNA J Primary Care Unavailable STAINBROOK JR.KEREN Referring Unavaila ble PRECIOUS PERAZA Attending Unavailable SELF, SELF Referring Unavailable MCCOLLUM, BRIANNA J Primary Care Unavailable STAINBROOK JR.KEREN Attending Unavaila ble MCCOLLUM, BRIANNA J Primary Care Unavailable STAINBROOK JR., KEREN Mckinney Attending Unavaila ble STAINBROOK JR.KEREN Referring Unavaila ble MCCOLLUM, BRIANNA J Primary Care Unavailable STAINBROOK JR., KEREN Mckinney Attending Unavaila ble STAINBROOK JR.KEREN Referring Unavaila ble MCCOLLUM, BRIANNA J Primary Care Unavailable STAINBROOK JR., KEREN Mckinney Attending Unavaila ble STAINBROOK JR.KEREN Referring Unavaila ble MCCOLLUM, BRIANNA J Primary Care Unavailable STAINBROOK JR.KEREN Attending Unavaila ble STAINBROOK JR.KEREN Referring Unavaila ble SELF, SELF Referring Unavailable MCCOLLUM, BRIANNA J Primary Care Unavailable STAINBROOK JR., KEREN Mckinney Attending Unavaila ble MCCOLLUM, BRIANNA J Primary Care Unavailable STAINBROOK JR.KEREN Attending Unavaila ble STAINBROOK JR.KEREN Referring Unavaila ble MCCOLLUM, BRIANNA J Primary Care Unavailable BERTRAND SUMNER Attending Unavailable STAINBROOK JR.KEREN Referring Unavaila ble MCCOLLUM, BRIANNA J Primary Care Unavailable STAINBROOK JR.KEREN Attending Unavaila ble STAINBROOK JR., KEREN Mckinney Referring Unavaila ble MCCOLLUM, BRIANNA J Primary Care Unavailable MCCOLLUM, BRIANNA J Primary Care Unavailable FLORI MATTHEWS, KEREN Mckinney Attending Unavaila ble SELF, SELF Referring Unavailable MCCOLLUM, BRIANNA J Primary Care Unavailable GOMEZ, SADIA L Attending Unavailable FLORUTA, CRINUTA Attending Unavailable MCCOLLUM, BRIANNA J Primary Care Unavailable FLORUTA, CRINUTA Attending Unavailable MCCOLLUM, BRIANNA J Primary Care Unavailable LICHTIN, GIANFRANCO E Referring Unavailable MCCOLLUM, BRIANNA J Primary Care Unavailable LICHTIN, GIANFRANCO E Attending Unavailable MCCOLLUM, BRIANNA J Primary Care Unavailable GOMEZ, SADIA L Referring Unavailable MCCOLLUM, BRIANNA J Primary Care Unavailable MCCOLLUM, BRIANNA J Primary Care Unavailable GOMEZ, SADIA L Referring Unavailable MCCOLLUM, BRIANNA J Primary Care Unavailable GOMEZ, SADIA L Attending Unavailable MCCOLLUM, BRIANNA J Primary Care Unavailable LAVRYK, CHRISTINA Attending Unavailable MCCOLLUM, BRIANNA J Primary Care Unavailable GOMEZ, SADIA L Attending Unavailable GOMEZ, SADIA L Admitting Unavailable MCCOLLUM, BRIANNA J Primary Care Unavailable LAVRYK, CHRISTINA Attending Unavailable Allergies Allergy Classification Reported Allergen(s) Allergy Type Date of Onset Reaction(s) Facility (1 source) Etanercept Drug Allergy [facility] Repository (20 sources) Etanercept; Translations: [ETANERCEPT] Drug Allergy 9 Rash, Itching, Swelling [facility] Repository (1 source) Etanercept Drug Allergy Facial Swelling [facility] (9 sources) Etanercept Drug Allergy [facility] Medications Current Medications Medication Drug Class(es) Dates Sig (Normalized) Sig (Original) acetaminophen 325 mg / oxyCODONE hydrochloride 5 mg oral tablet (1 source) Opioid Agonist Start: 03-28-2023 take 1 tablet by mouth every six hours as needed oxycodone-acetamino phen 5 mg-325 mg oral tablet ; 1 tab(s) orally every 6 hours, As Needed -for pain Quantity: 12 Refills: 0 Ordered: 28-Mar-2023 Catarino Crouch Start: 28-Mar-2023 Generic Substitution Allowed Comments: Caution federal law prohibits the transfer of this drug to any person other than the person for whom it was prescribed.May cause drowsiness. Alcohol may intensify this effect. Use care when operating dangerous machinery.This prescription cannot be refilled.This product contains acetaminophen. Do not use with any other product containing acetaminophen to prevent possible liver damage.Using more of this medication than prescribed may cause serious breathing problems. Completed/Discontinued Medications Medication Drug Class(es) Dates Sig (Normalized) Sig (Original) acetaminophen 325 mg oral capsule (4 sources) acetaminophen 32 5 mg cap Take 500 mg by mouth as needed. 0 Active Problems Active Problems Problem Classification Problem Date Documented Da te Episodic/Chronic Abdominal pain (18 sources) Abdominal pain; Translations: [Unspecified abdominal pain] 10-08-2021 Episodic Cardiac dysrhythmias (18 sources) Palpitations; Translations: [Palpitations] 10-08-2021 Episodic Coagulation and hemorrhagic disorders (20 sources) Disorder of hemostatic system; Translations: [Coagulation defect, unspecified] Onset: 10-24-2022 Chronic Diabetes mellitus without complication (20 sources) Hyperglycemia; Translations: [Hyperglycemia, unspecified] Onset: 05-19-2023 05-19-2023 Episodic Essential hypertension (20 sources) Hypertensive disorder; Translations: [Essential (primary) hypertension] 07-21-2023 Chronic Gastrointestinal hemorrhage (20 sources) Hematochezia; Translations: [Melena] Onset: 07-14-2023 07-14-2023 Episodic Gout and other crystal arthropathies (14 sources) Gouty arthritis of the ankle and/or foot; Translations: [Gout, unspecified] Onset: 03-28-2023 03-28-2023 Chronic Immunizations and screening for infectious disease (20 sources) Lupus anticoagulant disorder; Translations: [Raised antibody titer] Onset: 02-25-2019 04-10-2023 Episodic Menstrual disorders (9 sources) Menstrual period late; Translations: [Irregular menstruation, unspecified] 06-23-2016 Chronic Nutritional deficiencies (20 sources) Vitamin D deficiency; Translations: [Vitamin D deficiency, unspecified] Onset: 02-25-2019 04-10-2023 Chronic Osteoarthritis (20 sources) Osteoarthritis of joint of left ankle; Translations: [Primary osteoarthritis, left ankle and foot] Onset: 02-25-2019 04-10-2023 Chronic Other aftercare (2 sources) Surgical follow-up; Translations: [Encounter for other specified surgical aftercare] Episodic Other aftercare (3 sources) Other watermaster (current) drug therapy; Translations: [Other skilled nursing (current) drug therapy] Onset: 02-25-2019 Episodic Other aftercare (3 sources) 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 control 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 representative (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; Translations: [termite control service representative (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] Onset: 09-09-2020 Episodic Other aftercare (10 sources) Long-term current use of anticoagulant; Translations: [termite control service representative (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] Onset: 09-09-2020 04-10-2023 Episodic Other aftercare (10 sources) Long-term current use of systemic steroid; Translations: [termite control service representative (current) use of systemic steroids] Onset: 09-09-2020 Resolved: 07-19-2023 04-10-2023 Episodic Other aftercare (10 sources) H/O: high risk medication; Translations: [Other watermaster (current) drug therapy] Onset: 02-25-2019 04-10-2023 Episodic Other aftercare (20 sources) Patient encounter status; Translations: [termite control service representative (current) use of non-steroidal anti-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 (NSAID)] Onset: 01-21-2019 Resolved: 05-06-2019 05-06-2019 Episodic Other aftercare (2 sources) intermediate (current) use of non-steroidal anti-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 (NSAID); Translations: [intermediate (current) use of non-steroidal anti-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 (nsaid)] Onset: 05-19-2023 Episodic Other aftercare (2 sources) termite control service representative (current) use of systemic steroids; Translations: [termite control service representative (current) use of systemic steroids] Onset: 07-19-2023 Episodic Other circulatory disease (20 sources) Elevated blood pressure; Translations: [Elevated blood-pressure reading, without diagnosis of hypertension] 12-21-2022 Episodic Other connective tissue disease (1 source) Pain in left foot; Translations: [Pain in left foot] Onset: 03-28-2023 Episodic Other connective tissue disease (2 sources) Other specified soft tissue disorders; Translations: [Other specified soft tissue disorders] Onset: 03-28-2023 Episodic Other connective tissue disease (10 sources) H/O: rheumatoid arthritis; Translations: [Personal history of other diseases of the musculoskeletal system and connective tissue] Onset: 01-21-2019 04-10-2023 Episodic Other connective tissue disease (10 sources) Calcaneal spur of left foot; Translations: [Calcaneal spur, left foot] Onset: 04-10-2023 04-10-2023 Episodic Other connective tissue disease (18 sources) Pain in right lower limb; Translations: [Pain in right leg] 10-14-2019 Episodic Other connective tissue disease (2 sources) Calcaneal spur, left foot; Translations: [Calcaneal spur, left foot] Onset: 04-10-2023 Episodic Other connective tissue disease (2 sources) Personal history of other diseases of the musculoskeletal system and connective tissue; Translations: [Personal history of other diseases of the musculoskeletal system and connective tissue] Onset: 01-21-2019 Episodic Other nervous system disorders (10 sources) Carpal tunnel syndrome of right wrist; Translations: [Carpal tunnel syndrome, right upper limb] Onset: 01-21-2019 04-10-2023 Chronic Other nervous system disorders (18 sources) Bilateral carpal tunnel syndrome; Translations: [Carpal tunnel syndrome, bilateral upper limbs] 07-21-2023 Chronic Other nervous system disorders (2 sources) Carpal tunnel syndrome, right upper limb; Translations: [Carpal tunnel syndrome, right upper limb] Onset: 01-21-2019 Chronic Other non-traumatic joint disorders (18 sources) Polyarthropathy; Translations: [Polyarthritis, unspecified] 07-22-2020 Chronic Other non-traumatic joint disorders (20 sources) Monoarthritis; Translations: [Monoarthritis, not elsewhere classified, unspecified site] 04-01-2016 Chronic Other non-traumatic joint disorders (18 sources) Pain in wrist; Translations: [Pain in unspecified wrist] 09-24-2015 Episodic Other nutritional; endocrine; and metabolic disorders (18 sources) Obese class II; Translations: [Obesity, unspecified] Onset: 01-21-2019 09-07-2021 Chronic Other nutritional; endocrine; and metabolic disorders (20 sources) Body mass index 40+ - severely obese; Translations: [Morbid (severe) obesity due to excess calories] Onset: 10-31-2022 10-31-2022 Chronic Other nutritional; endocrine; and metabolic disorders (2 sources) Hyperproteinemia; Translations: [Other disorders of plasma-protein metabolism, not elsewhere classified] Onset: 07-19-2023 07-19-2023 Chronic Other nutritional; endocrine; and metabolic disorders (20 sources) Obesity; Translations: [Obesity, unspecified] 07-21-2023 Chronic Other nutritional; endocrine; and metabolic disorders (2 sources) Other disorders of plasma-protein metabolism, not elsewhere classified; Translations: [Other disorders of plasma-protein metabolism, not elsewhere classified] Onset: 07-19-2023 Chronic Other nutritional; endocrine; and metabolic disorders (10 sources) Hyperuricemia; Translations: [Hyperuricemia without signs of inflammatory arthritis and tophaceous disease] Onset: 02-25-2019 Resolved: 07-19-2023 04-10-2023 Episodic Other nutritional; endocrine; and metabolic disorders (2 sources) Hyperuricemia without signs of inflammatory arthritis and tophaceous disease; Translations: [Hyperuricemia without signs of inflammatory arthritis and tophaceous disease] Onset: 07-19-2023 Episodic Other screening for suspected conditions (not mental disorders or infectious disease) (10 sources) Blood chemistry abnormal; Translations: [Other nonspecific findings on examination of blood] Onset: 08-28-2023 04-05-2016 Episodic Other skin disorders (18 sources) Thickened nails; Translations: [Onychogryphosis] 10-14-2019 Episodic Other skin disorders (18 sources) [place] - lesion ; Translations: [Corns and callosities] 07-27-2015 Episodic Other upper respiratory infections (18 sources) Upper respiratory infection; Translations: [Acute upper respiratory infection, unspecified] 10-14-2019 Episodic Phlebitis; thrombophlebitis and thromboembolism (20 sources) H/O: Deep vein thrombosis; Translations: [Personal history of other venous thrombosis and embolism] Onset: 05-06-2019 04-10-2023 Episodic Residual codes; unclassified (10 sources) FH: Gout; Translations: [Family history of other diseases of the musculoskeletal system and connective tissue] Onset: 02-25-2019 04-10-2023 Episodic Residual codes; unclassified (20 sources) Bilateral lower limb edema; Translations: [Localized edema] 07-21-2023 Episodic Residual codes; unclassified (20 sources) Edema; Translations: [Edema, unspecified] 08-24-2023 Episodic Residual codes; unclassified (2 sources) Family history of other diseases of the musculoskeletal system and connective tissue; Translations: [Family history of other diseases of the musculoskeletal system and connective tissue] Onset: 02-25-2019 Episodic Rheumatoid arthritis and related disease (20 sources) Rheumatoid arthritis of multiple joints; Translations: [Rheumatoid arthritis with rheumatoid factor of multiple sites without organ or systems involvement] Onset: 02-25-2019 Resolved: 04-10-2023 09-07-2021 Chronic Skin and subcutaneous tissue infections (18 sources) Abscess of perineum; Translations: [Cutaneous abscess of perineum] 12-21-2022 Episodic Spondylosis; intervertebral disc disorders; other back problems (20 sources) Sacroiliac disorder; Translations: [Sacroiliitis, not elsewhere classified] Onset: 02-25-2019 09-07-2021 Chronic Substance-related disorders (20 sources) Tobacco user; Translations: [Nicotine dependence, unspecified, uncomplicated] 12-21-2022 Chronic Systemic lupus erythematosus and connective tissue disorders (20 sources) History of disorder of connective tissue; Translations: [Systemic lupus erythematosus, unspecified] Onset: 01-21-2019 04-10-2023 Chronic Unclassified (2 sources) LFT SWOOLEN FOOT 03-28-2023 Past or Other Problems Problem Classification Problem Date Documented Date Episodic/Chronic Anal and rectal conditions (20 sources) Anal pain; Translations: [Other specified diseases of anus and rectum] Onset: 10-11-2022 12-21-2022 Episodic Malaise and fatigue (5 sources) Fatigue; Translations: [Other fatigue] Onset: 01-21-2019 01-21-2019 Episodic Other aftercare (8 sources) intermediate methotrexate user; Translations: [Methotrexate, skilled nursing, current use] Onset: 02-25-2019 Resolved: 04-10-2023 04-10-2023 Episodic Other aftercare (1 source) Encounter for other specified surgical aftercare; Translations: [Aftercare following surgery] Onset: 11-28-2022 Episodic Other bone disease and musculoskeletal deformities (5 sources) Disorder of skeletal system; Translations: [Disorder of bone, unspecified] Onset: 01-21-2019 01-21-2019 Episodic Other connective tissue disease (5 sources) Biceps tendinitis; Translations: [Bicipital tendinitis, left shoulder] Onset: 01-21-2019 01-21-2019 Episodic Other connective tissue disease (5 sources) Subacromial bursitis; Translations: [Bursitis of unspecified shoulder] Onset: 01-21-2019 01-21-2019 Episodic Other connective tissue disease (5 sources) Medial epicondylitis of right humerus; Translations: [Medial epicondylitis, right elbow] Onset: 01-21-2019 01-21-2019 Episodic Other connective tissue disease (5 sources) Chronic pain of right upper limb; Translations: [Pain in right hand] Onset: 01-21-2019 01-21-2019 Episodic Other connective tissue disease (5 sources) Weakness of right hand; Translations: [Other symptoms and signs involving the musculoskeletal system] Onset: 01-21-2019 01-21-2019 Episodic Other nervous system disorders (5 sources) Paresthesia of hand ; Translations: [Paresthesia of skin] Onset: 01-21-2019 01-21-2019 Episodic Other nervous system disorders (1 source) Other acute postprocedural pain; Translations: [Acute postoperative pain] Onset: 10-31-2022 Episodic Other non-traumatic joint disorders (15 sources) Pain in right knee; Translations: [Pain in joint, lower leg] Onset: 01-21-2019 04-10-2023 Episodic Other non-traumatic joint disorders (5 sources) Bilateral chronic pain of upper limbs; Translations: [Pain in right shoulder] Onset: 01-21-2019 01-21-2019 Episodic Other non-traumatic joint disorders (5 sources) Pain in elbow; Translations: [Pain in right elbow] Onset: 01-21-2019 01-21-2019 Episodic Other non-traumatic joint disorders (5 sources) Pain of right wrist; Translations: [Pain in right wrist] Onset: 01-21-2019 01-21-2019 Episodic Other non-traumatic joint disorders (5 sources) Ankle pain; Translations: [Pain in right ankle and joints of right foot] Onset: 01-21-2019 01-21-2019 Episodic Residual codes; unclassified (8 sources) Noncompliance with treatment; Translations: [Noncompliance] Onset: 09-09-2020 04-10-2023 Episodic Residual codes; unclassified (8 sources) Patient noncompliance - general; Translations: [Patient non adherence] Onset: 09-09-2020 04-10-2023 Episodic Residual codes; unclassified (5 sources) Procedure not done; Translations: [Procedure and treatment not carried out because of patient's decision for unspecified reasons] Onset: 07-05-2011 05-16-2022 Episodic Spondylosis; intervertebral disc disorders; other back problems (5 sources) Backache; Translations: [Dorsalgia, unspecified] Onset: 01-21-2019 01-21-2019 Episodic Unclassified (9 sources) Leg swelling - The onset of the leg swelling has been sudden and has been occurring in a persistent pattern for 1 week. The course has been increasing. The leg swelling is described as moderate. The leg swelling is described as being located in the left calf and right calf. The symptoms have been associated with pain and decreased range of motion, while the symptoms have not been associated with erythema, shortness of breath or chest pain. 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 She suddenly stopped taking this medication when a GI specialist at [facility] told her to a week ago. Since then, she has had swelling and worsening lupus symptoms. Patient had a similar episode of swelling in March and was successfully treated with a short course of prednisone. 07-21-2023 Unclassified (9 sources) Rectal bleeding - The onset of the rectal bleeding has been acute and has been occurring in a persistent pattern for 2 days. The course has been constant. 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 This morning when at work she also had blood come out. Mom checked this morning and bleeding source not determined.No abd pain. 07-10-2023 Unclassified (9 sources) Edema - The onset of the edema has been gradual and has been occurring in a persistent pattern for 6 weeks . The edema occurs gradually (worse in the evenings). The edema is characterized as moderate , and the course of the edema has been increasing. It affects both lower extremities. There were no precipitating factors. The symptoms have not been relieved by any method. Note for Edema : No previous cardiac testing.Last labs done by hematology 10/2022. Has appt with rheum (Dr. Ruby) on April 10.No chest pain. Some SOB which she attributes to her weight. 03-20-2023 Unclassified (9 sources) Draining area near rectum - Pt is complaining of having drainage near rectum area - clear/orange. Pt said it's been going on for about 2 weeks. Pt wants to know why this happening. Pt says it is not painful. Had an episode 2 weeks ago where she had significant rectal bleeding - all through her pants. Has blood on toilet paper when she wipes following BMs. 07-27-2022 Unclassified (9 sources) rectal pain - Pt has had constant anal burning/itching for 3 weeks, pt denies constipation or diarrhea, no rectal bleeding. Pt has history of fistulotomy.Davis there was a lump there.Has soft BM daily; no straining. Has tried OTC preparation H. No sitz baths.Had colon[place] [address] Montanez - had polyps and was told next due in 2022. 11-03-2021 Unclassified (9 sources) Abdominal pain - The onset of the abdominal pain has been acute and has been occurring in a persistent pattern for 4 days. The course has been constant. The pain is described as a moderate sharp pain, pressure sensation and cramping. The pain is located in the left lower quadrant and does not radiate. The symptoms are aggravated by coughing and motion but have no relieving factors. The symptoms have been associated with bloating and nausea (only with sharp pains), while the symptoms have not been associated with constipation, diarrhea or fever. Note for Abdominal pain : No diarrhea, vomiting, or fever. Pain is worse with sitting and better if lying on her left side.Has a bloody BM about once a month - not associated with hard stool or pain. Last episode was a couple of weeks ago. 05-07-2020 Unclassified (9 sources) Cold Symptoms - Symptoms include nasal congestion, runny nose, ear fullness, sore throat, hoarseness, dry cough, chills, general malaise and headache, but do not include ear pain, fever or facial pain. The onset was gradual 4 day(s) ago. The symptoms occur constantly. The patient describes this as moderate in severity and worsening. Current treatment includes non-prescription cold medication and allergy medications. The patient has been exposed to an individual with similar symptoms (at work a few wks ago). Patient denies history of seasonal allergies, recurrent sinusitis, recurrent strep pharyngitis, asthma, tonsillectomy or recurrent ear infections. Note for Upper respiratory infection : some light headness 10-14-2019 Unclassified (9 sources) Knee pain - The onset of the knee pain has been acute (Monday it started to ache and then yesterday she could not walk on it.) and has been occurring in a persistent pattern. The course has been increasing. The knee pain is moderate to severe in the right knee. The knee pain is characterized as a dull aching (and then when she moves it throbs and simpson and when she walks it is a stabbing pain). The knee pain is described as being located in the entire knee (down to the ankle). The knee pain is relieved by heat and NSAIDs. The symptoms have been associated with giving way, painful ROM and decreased ROM. There were no previous diagnostic tests. There were no previous evaluations. There has been no previous physical therapy. There has been no previous surgeries. There is no use of assistive devices. Previous medications include Ultram (and then her RA medications). Note for Knee pain : No redness. Has been swollen from below the knee down to the ankle. Hasn't taken any medication today.No chest pain or SOB. 04-29-2019 Unclassified (7 sources) Toenail problems - The onset of the toenail problems has been gradual and they have been occurring in a persistent pattern for 5 months. The course has been increasing. The toenail problems are described as moderate. The toenails are characterized as discolored, thickened and brittle. Note for Toenail problems : Only great toenail. 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 Doesn't want to go to [place] either - felt she wanted to add new meds on top of meds that weren't working. 10-10-2018 Unclassified (9 sources) Leg swelling - The onset of the leg swelling has been gradual (Has been having swelling in her legs but today they are not so bad.Usually they are normal in the morning and then they get worse as the day goes on. Worse on days that she works. Bilateral, intermittent.She has been seeing Dr. Mauricio (last appt was 2 weeks ago) but no longer wants to see her. Has gradually been tapering off her meds. Hasn't taken any meds for a couple of days. She has had weight gain (up 17 pounds since last OV here in Apr 2016) and swelling of her face. Rarely takes prednisone but at one point she was on it daily x 6 months and did notice that is when face seemed to get bigger.Doesn't want to do injectable med. Was on enbrel at one point and had a local site reactio.Pt has access to labs - looks like in the past few years she has had ESR (83), CRP (16.70), RF <10, Vitamin D (24.4), Anti SSA,B (elevated), Anti-CCP (250).). Note for Leg swelling : Last appointment here was 04/19/16.CMP and CBC were normal on 11/22/17. 12-12-2017 Unclassified (9 sources) Knee pain - The onset of the knee pain has been sudden following no specific incident and has been occurring in a persistent pattern for days. The course has been rapidly worsening. The knee pain is moderate to severe in both knees. The knee pain is characterized as a dull aching ( crushing ). The knee pain is described as being located in the entire knee. The knee pain is aggravated by physical activity, twisting, squatting, kneeling, climbing, stairs and prolonged standing. The knee pain is relieved by rest and modification of activity. The symptoms have been associated with giving way, catching, joint swelling, instability, painful ROM, decreased ROM, popping/crepitus, difficulty arising from chair, difficulty going up and down stairs and difficulty with sports activities. Previous evalutations were completed by the primary care physician. There has been no previous physical therapy. There has been no previous surgeries. There is no use of assistive devices. Previous medications include Ibuprofen. Note for Knee pain : Patient was seen by Dr. Da Silva on 03/28/16 for leg/foot pain. Patient had multiple labs drawn. The KIKO came back positive. She is going to have it repeated in the future. She was also prescribed Pen V K. Patient finished the course of atb last week. 04-21-2016 Unclassified (9 sources) Ankle pain - The onset of the ankle pain has been acute and has been occurring in a persistent pattern for 2 days (started yesterday morning.). The course has been worsening. The pain is characterized as a moderate to severe burning sensation (on bottom of foot. Has shooting pain into calf to knee.). The pain is in the right ankle and is described as being located in the entire ankle and calf muscle. There are no relieving factors. Note for Ankle pain : Painful at all times even with no movement. 03-28-2016 Unclassified (9 sources) Hand pain - The onset of the hand pain has been gradual following no specific incident and has been occurring in a persistent pattern for 4 days. The course has been constant. The hand pain is characterized as a moderate to severe dull aching (when just sitting there but when she moves it, it stings and she has trouble gripping things). The hand pain is described as being located in the entire hand. The symptoms have been associated with painful ROM. There have been no previous diagnostic tests. There has been no previous evaluations. Note for Hand pain : Radiates up her arm. No risk factor for clot. 09-24-2015 Unclassified (9 sources) Foot Pain - Pt is here today for right foot pain. She was seen last November and diagnosed with with a corn. She has been using the patches and bought new shoes but she continues to have problems. [place] is on bottom of foot and very painful to walk; she felt it was time for re-evaluation; pain significantly worsened over the past week. 07-27-2015 Unclassified (9 sources) Foot pain - The pain is in the right foot (bottom of her foot she has a lump on it; it is the color of her skin; no drainage but is increasing in size. Hurts to bear weight and/or touch. No fever.). The onset of the foot pain was gradual and has been occurring in a persistent pattern. The course has been increasing. The pain is moderate to severe. There have been no previous diagnostic tests. Note for Foot pain : Has been there for months but just lately it started to become painful. 12-11-2014 Unclassified (9 sources) Hand pain - The onset of the hand pain has been gradual and has been occurring in a persistent pattern for months. The course has been increasing. The hand pain is characterized as a moderate burning sensation (numb and throbbing). The hand pain is described as being located in the entire hand. The hand pain is aggravated by any movement. There have been no relieving factors. There have been no previous diagnostic tests. There has been no previous evaluations. There have been no previous surgeries. Assistive devices have included wrist splint (but can't use them at work; has started a new job and makes [employer]). Note for Hand pain : No improvement with ibuprofen. Both hands are affected - R>L; she is right hand dominant. 05-16-2014 Unclassified (8 sources) swelling - Pt is here for swelling all over for 2 months that is getting worse, pt was on prednisone and stopped those 6 weeks ago, swelling started before stopping prednisone.Appt with general surgeon is on Monday - for fistula. Feels swollen from head to toe. Feet and legs are what is bothering her the most. Has noticed swelling even of the face.Had swelling before stopping prednisone about 6 weeks ago - stopped without tapering; was on 4 pills daily of the prednisone when she stopped taking it (thinks they were 5mg each); had been on it x few months before stopping. Was started on spironolactone --- no change when was taking that.The only time her swelling went down was when she had covid after [place] and so she was in bed for an extended period of time. Skin is tight so that is painful for her.Was started on renvoq by deputy county clerk --- but can't get that covered by her insurance. Next f/u with rheum is middle of next month. Weight gain and tired. No muscle weakness. Currently drinking 6 beers a day. Labs done early July were essentially normal - no kidney disease, only mild elevation of liver enzyme, normal TSH, normal BNP. 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 Doesn't want to go to [facility] either - felt she wanted to add new meds on top of meds that weren't working. 10-10-2018 Unclassified (2 sources) [ADDITIONAL REASON] Toenail problems - The onset of the toenail problems has been gradual and they have been occurring in a persistent pattern for 5 months. The course has been increasing. The toenail problems are described as moderate. The toenails are characterized as discolored, thickened and brittle. Note for Toenail problems : Only great toenail. 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 08-24-2023 11:09-0500 Body mass index (BMI) [Ratio] 48.26 kg/m2 Haydee Che LPN [employer] 08-24-2023 11:09-0500 Body surface area Derived from formula 2.37 m2 Haydee Che LPN [employer] 08-24-2023 11:09-0500 Body weight 135.63 kg Haydee Che LPN [employer] 08-24-2023 11:09-0500 Diastolic blood pressure 87 mm[Hg] Haydee Che LPN [employer] Encounters Encounter Date Encounter Type Care Provider Facility Start: 09-25-2023 ambulatory [facility] Start: 09-09-2023 ambulatory [facility] Start: 09-06-2023 End: 09-06-2023 Orders Brianna Mccollum PA-C Work Phone: [facility] Start: 09-04-2023 End: 09-04-2023 Orders Brianna Mccollum PA-C Work Phone: [facility] Start: 09-01-2023 End: 09-02-2023 ambulatory BRIANNA MCCOLLUM Facility:[facility] Start: 08-28-2023 ambulatory CHRISTINA AWAD Facility:[facility] Start: 08-25-2023 End: 08-25-2023 Medication Brianna Mccollum PA-C Work Phone: [facility] Start: 08-25-2023 End: 08-25-2023 Orders Brianna Sommerer PA-C Work Phone: [facility] Start: 08-24-2023 End: 08-24-2023 Patient encounter procedure Brianna Sommerer PA-C Work Phone: [facility] Start: 08-22-2023 ambulatory BRIANNA MCCOLLUM [facility] Start: 08-03-2023 Telephone encounter Christina barros MD, PhD Work Phone: Colorectal Surgery Procedures Date Procedure Procedure Detail Performing Clinician Start: 07-14-2023 Sigmoidoscopy flx dx w/collj spec br/wa if pfrmd [facility] Provider Start: 05-06-2023 End: 05-06-2023 Radex hip unilateral with pelvis 2-3 views Keren Ruby DO Work Phone: Start: 04-29-2019 End: 04-29-2019 Dup-scan lxtr art/artl bpgs uni/lmtd study Brianna Patel Mccollum PA-C Work Phone: Start: 12-11-2017 End: 12-11-2017 Body mass index documented Brianna Patel Hussain elva PA-C Work Phone: Start: 12-11-2017 End: 12-11-2017 Most recent diastol blood pres >/equal 90 mm hg Brianna Patel Mccollum PA-C Work Phone: Start: 12-11-2017 End: 12-11-2017 Most recent systolic blood pres>/equal 140 mm hg Brianna Patel Mccollum PA-C Work Phone: Start: 11-22-2017 End: 11-22-2017 Lab findings surveillance Elle Leo rd [employer] Plan of Treatment Date Care Activity Detail Author Start: 09-07-2026 HPV TESTING HPV TESTING [facility] Start: 09-07-2026 PAP TESTING PAP TESTING [facility] Start: 09-07-2026 Screening for malignant neoplasm of cervix [facility] Start: 09-25-2023 End: 09-25-2023 Patient encounter procedure 09/25/2023 2:30 PM EST Office Visit [facility] [address] [place] [id number] Keren Ruby Jr., [address] [place] [phone] [facility] Start: 09-06-2023 Basic metabolic panel calcium total BMP w/ GFR (F) (27947) Start: 06-Sep-2023 Request [employer] ([facility] [employer] [facility] Start: 09-04-2023 Nursing evaluation of patient and report Medical; Nurse visit - wt check, BMP mjp [employer] 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 (NSAID) Hyperproteinemia History of systemic lupus erythematosus (SLE) History of DVT (deep vein thrombosis) Family history of gout Current use of skilled nursing anticoagulation Anti-cyclic citrullinated peptide antibody positive Vitamin D deficiency Hyperglycemia Carpal tunnel syndrome of right wrist Thoracic degenerative disc disease Primary osteoarthritis of right knee Primary osteoarthritis of right hip Osteoarthritis of sacroiliac joint Lumbar spondylosis Lumbar degenerative disc disease Localized osteoarthritis of right ankle Localized osteoarthritis of left ankle Gouty arthropathy Calcaneal spur of foot, left History of rheumatoid arthritis 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 1984 Unknown [id number] 2.16.84 [id number] 1984 Unknown [id number] 2.16. [id number] 1984 Unknown [id number] 2.16.8 40.1.858383.3.579.2.1069 1984 Unknown [id number] 2.16.8 40.1.323426.3.579.2.983 1984 Unknown [id number] 2.16.8 40.1.026128.3.579.2.983 1984 Unknown [id number] 2.16.8 40.1.034133.3.579.2.983 1984 Unknown [id number] 2.16.8 40.1.710889.3.579.2.983 1984 Unknown [id number] 2.16.8 40.1.307055.3.579.2.983 1984 Unknown [id number] 2.16.8 40.1.641618.3.579.2.983 1984 Unknown [id number] 2.16.8 40.1.237353.3.579.2.983 1984 Unknown [id number] 2.16.8 40.1.416277.3.579.2.983 1984 Unknown [id number] 2.16.8 40.1.354581.3.579.2.983 1984 Unknown [id number] 2.16.8 40.1.899963.3.579.2.983 1984 Unknown [id number] 2.16.8 40.1.117491.3.579.2.983 1984 Unknown [id number] 2.16.8 40.1.395258.3.579.2.983 1984 Unknown [id number] 2.16.8 40.1.350709.3.579.2.983 1984 Unknown [id number] 2.16.8 40.1.347023.3.579.2.983 1984 Unknown [id number] 2.16.8 40.1.614165.3.579.2.983 1984 Unknown [id number] 2.16.8 40.1.426889.3.579.2.983 Unknown [id number] Social History Date Type Detail Facility Tobacco smoking stat [facility] Unknown if ever smoked [facility] Start: 1984 Sex Assigned At Not on file A [facility] [employer] Start: 09-07-2021 Tobacco smoking stat [facility] Occasional tobacco smoker [facility] Work Phone: End: 08-14-2022 History of tobacco use Cigarette Smoker [facility] Work Phone: Start: 09-07-2021 End: 01-03-2023 Cigarettes smoked current (pack per day) - Reported 0.5 [facility] Start: 09-07-2021 End: 10-11-2022 Tobacco use and exposure Smokeless tobacco non-user [facility] Work Phone: Start: 09-07-2021 End: 07-14-2023 Alcohol intake Current drinker of alcohol (finding) [facility] Start: 09-01-2016 Alcohol Comment social [facility] Start: 10-11-2022 [facility] End: 08-14-2022 History of tobacco use Current smoker [facility] Tobacco smoking consumption unknown [facility] Start: 04-10-2023 Tobacco smoking stat [facility] Smokes tobacco daily [facility] Start: 02-08-2021 End: 01-03-2023 Tobacco use panel [facility] Adult Depression Screening Assessment 1 [facility] Tobacco Use: Tobacco Use: ; F ormer smoker. [employer] [facility] [employer] Female [employer] [facility] [employer] [facility] Work Phone: Clinical Notes 08-01-2022 to 09-01-2023 Telephone Encounter - Marika Stafford RN - 08/03/2023 2:57 PM ESTTelephone Encounter - Eulalio Gonzalez - 08/03/2023 12:12 PM ESTDaviniall Ruby Jr., - 07/19/2023 2:30 PM ESTPatient Instructions Note Date & Type Note Facility 09-01-2023 Note HNO ID: [id number] Author: CHRISTINA AWAD MD, PhD Service: ? Author Type: Physician Type: Progress Notes Filed: 09/10/2023 16:36 Note Text: COLORECTAL SURGERY Follow-up September 01, 2023 Chief complaint: rectal drainge HPI: Codi Eli is a 38 year old female with a history of anal fistula and fissure who presents for recommended follow up after colonoscopy and EGD. Fistula incision opened at home and has some leakage of blood and fluid. No fevers No constipation 08/28/23 Colonoscopy/ EGD Findings: The perianal and digital rectal examinations were normal. Non-bleeding internal hemorrhoids were found. A 3 to 4 mm polyp was found in the rectum. The polyp was sessile. The polyp was removed with a cold biopsy forceps. Resection and retrieval were complete. Verification of patient identification for the specimen was done by the nurse. Estimated blood loss was minimal. Impression: - Non-bleeding internal hemorrhoids. - One 3 to 4 mm polyp in the rectum, removed with a cold biopsy forceps. Resected and retrieved. Findings: The first portion of the duodenum and second portion of the duodenum were normal. Radially mildly striped erythematous mucosa without bleeding was found in the gastric antrum. Biopsies were taken with a cold forceps for histology. Verification of patient identification for the specimen was done by the nurse. Estimated blood loss was minimal. The Z-line was irregular, c/w mild esophagitis. Biopsies were taken with a cold forceps for histology. Verification of patient identification for the specimen was done by the nurse. Estimated blood loss was minimal. Impression: - Normal first portion of the duodenum and second portion of the duodenum. - Erythematous mucosa in the antrum. Biopsied. - Z-line irregular. Biopsied. Small hiatal hernia Retained bile in duodenal bulb FINAL DIAGNOSIS A. Stomach, biopsy: - Mild chronic gastritis. B. Gastroesophageal junction, biopsy: - Gastric-type and squamous mucosae with no significant pathologic abnormality. C. Rectum, polypectomy: - Fragments of hyperplastic polyp. 07/14/[address] Awad Treatment plan: Would recommend to obtain full colonoscopy given multiple polyps in the rectum now on flexible sigmoidoscopy and also upper endoscopy in setting of recent steroids to rule out peptic ulcer disease. She does have internal hemorrhoid on the anoscopy. For that recommend to optimize her bowel function with that we will start Metamucil daily. Avoid straining. Use squatty potty. Drink least 2 L of water. Okay to start Xarelto today. She will need to hold it before colonoscopy and endoscopy. Return to see me in 6 weeks with colonoscopy report. If colonoscopy is negative for source of bleeding will be on the hemorrhoids. 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 Explained the need to wean off steroids as soon as possible. She refuses. 07/14/23 SIGMOIDOSCOPY Impression: - Hemorrhoids found on perianal exam. - Many polyps in the rectum. - No specimens collected. Physical Exam: LMP 09/03/2016 (Exact Date) General - awake, alert, no acute distress Abdominal - Soft, NTTP, non distended, no guarding, -ve peritoneal signs. Anorectal: Perianal skin is intact. No erythema, induration or excoriation. No fissure, fistula or external hemorrhoids. Scars from prioir fistulotomy are well healed There is no external opening I can see. Digital Rectal Exam: Anus: closed Resting tone: NORMAL Squeeze tone: NORMAL Zigzag Stitcher present: Yes Anoscopy Anoscopy: The patient was placed in chest-knee position. After digital exam with a lubricated finger, the scope was easily inserted. There were No hemorrhoids present. The mucosa was otherwise normal. Patient tolerated procedure well. No internal fistula opening seen Assessment Medical Decision Making: Assessment AND Diagnosis: Codi Eli is a 38 year old female with hx of fistula in ano s/p fistulotomy. She is presenting with concern for drainage from around the rectum after Flex sig - it now stopped. Data Reviewed: Tests AND Documents Reviewed/ordered: Review of [facility] notes [facility] Review of prior operative reports Review of Labs: CBC, BMP Review of Procedures / Tests: Flexible Sigmoidoscopy I have independently interpreted: n/a I have discussed oCdi Eli's treatment plan and/or results with her. Treatment plan: Send photo via Apttust if this recurs /she sees swelling If continues to have drainage check MRI for fistula recurrence Might need EUA She stopped her steroids. Her legs are swollen. Recommend cardiology consult here for swelling? Heart failure work up? Offered rheumatology consult here and she refused. Risk of morbidity, mortality and/or complications of treatment plan: high [facility] 08-28-2023 Note HNO ID: [id number] Author: EULALIO JACKSON RN Service: Nursing Author Type: Registered Nurse Type: Nursing Progress Note Filed: 08/28/2023 07:27 Note Text: Other: pt ready for OR, issa light in reach, family called to bedside [facility] 08-03-2023 Miscellaneous Notes SPECIALTY CARE COORDINATION FOLLOW-UP NOTE Concerns: Pt had blood and infection from anal area. She said this is where her last fistula surgery was. I asked her what she meant by infection. She described yellow/orange-juan drainage with the blood. She said she has been putting toilet paper back there while she's at work. I asked her to send a picture of the drainage next time she changes it out. She denies any S/Sx of infection- we discussed these s/sx and when to message us/ when to go to ER for follow up. I offered her a sooner office visit with Dr. Awad however the Monday she currently is scheduled for works best for her. I told her if she starts developing other systems she needs to let us know- so she can be seen sooner with an YOUTH CARE SPECIALIST/PA. She agreed to this. We will wait to see what drainage looks like then go from there. Looper Fixer plan for next outreach: Will follow up after [employer]hart images are sent Signature Marika Stafford RN August 03, 2023 Patient states she is experiencing blood from her rectum again. She wants to know what else she can be doing documented in this encounter [facility] 07-26-2023 Note HNO ID: [id number] Author: LESLI ROMANO, RN Service: ? Author Type: Registered Nurse Type: Progress Notes Filed: 08/30/2023 08:15 Note Text: Codi Eli is a 38 year old female with a history of anal fistula and fissure who presents for recommended follow up after colonoscopy and EGD. 08/28/23 Colonoscopy/ EGD Findings: The perianal and digital rectal examinations were normal. Non-bleeding internal hemorrhoids were found. A 3 to 4 mm polyp was found in the rectum. The polyp was sessile. The polyp was removed with a cold biopsy forceps. Resection and retrieval were complete. Verification of patient identification for the specimen was done by the nurse. Estimated blood loss was minimal. Impression: - Non-bleeding internal hemorrhoids. - One 3 to 4 mm polyp in the rectum, removed with a cold biopsy forceps. Resected and retrieved. Findings: The first portion of the duodenum and second portion of the duodenum were normal. Radially mildly striped erythematous mucosa without bleeding was found in the gastric antrum. Biopsies were taken with a cold forceps for histology. Verification of patient identification for the specimen was done by the nurse. Estimated blood loss was minimal. The Z-line was irregular, c/w mild esophagitis. Biopsies were taken with a cold forceps for histology. Verification of patient identification for the specimen was done by the nurse. Estimated blood loss was minimal. Impression: - Normal first portion of the duodenum and second portion of the duodenum. - Erythematous mucosa in the antrum. Biopsied. - Z-line irregular. Biopsied. Small hiatal hernia Retained bile in duodenal bulb FINAL DIAGNOSIS A. Stomach, biopsy: - Mild chronic gastritis. B. Gastroesophageal junction, biopsy: - Gastric-type and squamous mucosae with no significant pathologic abnormality. C. Rectum, polypectomy: - Fragments of hyperplastic polyp. 07/14/[address] Awad Treatment plan: Would recommend to obtain full colonoscopy given multiple polyps in the rectum now on flexible sigmoidoscopy and also upper endoscopy in setting of recent steroids to rule out peptic ulcer disease. She does have internal hemorrhoid on the anoscopy. For that recommend to optimize her bowel function with that we will start Metamucil daily. Avoid straining. Use squatty potty. Drink least 2 L of water. Okay to start Xarelto today. She will need to hold it before colonoscopy and endoscopy. Return to see me in 6 weeks with colonoscopy report. If colonoscopy is negative for source of bleeding will be on the hemorrhoids. 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 Explained the need to wean off steroids as soon as possible. She refuses. 07/14/23 SIGMOIDOSCOPY Impression: - Hemorrhoids found on perianal exam. - Many polyps in the rectum. - No specimens collected. [facility] 07-19-2023 History of Presen t illness Narrative Images from the original note were not included. Subjective History of Present Illness Humira started 02/2021. It has been so long patient does not remember if the Humira helped her. Humira did not bother her. Patient can not remember her last dose of Humira. Patient does not want to take shots. Due to greed and the despicable nature of her insurance they will not pay Rinvoq. Patient started Rinvoq 05/2023 and stopped in 06/2023. Rinvoq was helping and not bothering the patient. Presence of Pain: complains of pain/discomfort Select Pain Scale: DVPRS (Defense and Veterans Pain Rating Scale) (Adult-Cognitively Intact) DVPRS: Rest: 8- severe pain Select Pain Scale: DVPRS (Defense and Veterans Pain Rating Scale) (Adult-Cognitively Intact). Total time spent in this encounter was 44 minutes. Patient is being evaluated for an unstable chronic illness that increase morbidity and mortality. Joint pain is oh God yeah. Patient is here for 2 month Follow-up. Patient states she has not been doing well. States she is having a lot of pain. States there is a lot of swelling. States she is having trouble sleeping. Patient stopped her prednisone for the past week. Still not smoking. Patient is not using wrist splints. Objective Review of Systems Constitutional: Negative. HENT: Negative. Eyes: Negative. Respiratory: Negative. Cardiovascular: Positive for leg swelling. Gastrointestinal: Negative. Endocrine: Negative. Genitourinary: Negative. Musculoskeletal: Positive for arthralgias and joint swelling. Skin: Negative. Allergic/Immunologic: Negative. Neurological: Negative. Hematological: Negative. Psychiatric/Behavioral: Positive for sleep disturbance. Vitals: Blood pressure 126/80, pulse 88, temperature 98.7 F (37.1 C), temperature source Temporal, height 1.702 m (5' 7 ), weight 117.9 kg (259 lb 14.8 oz), SpO2 98 %. Physical Exam Vitals and nursing note reviewed. Constitutional: Appearance: She is well-developed. She is obese. HENT: Head: Normocephalic and atraumatic. Right Ear: External ear normal. Left Ear: External ear normal. Nose: Nose normal. Mouth/Throat: Mouth: Mucous membranes are moist. Pharynx: Oropharynx is clear. Eyes: Extraocular Movements: Extraocular movements intact and EOM normal. Conjunctiva/sclera: Conjunctivae normal. Pupils: Pupils are equal, round, and reactive to light. Cardiovascular: Rate and Rhythm: Normal rate and regular rhythm. Pulses: Radial pulses are 2+ on the right side and 2+ on the left side. Heart sounds: Normal heart sounds. Pulmonary: Effort: Pulmonary effort is normal. Breath sounds: Normal breath sounds. Abdominal: General: Bowel sounds are normal. Palpations: Abdomen is soft. Comments: obese Musculoskeletal: Right shoulder: Tenderness present. Decreased range of motion. Left shoulder: Tenderness present. Decreased range of motion. Right upper arm: Normal. Left upper arm: Normal. Right elbow: Decreased range of motion. Tenderness present. Left elbow: Decreased range of motion. Tenderness present. Right forearm: Normal. Left forearm: Normal. Right wrist: Crepitus present. Decreased range of motion. Left wrist: Crepitus present. Decreased range of motion. Right hand: Decreased strength. Left hand: Decreased strength. Cervical back: Neck supple. Right upper leg: Normal. Left upper leg: Normal. Right knee: Crepitus present. Decreased range of motion. Left knee: Crepitus present. Decreased range of motion. Right lower le+ Edema present. Left lower le+ Edema present. Right ankle: Swelling present. Decreased range of motion. Left ankle: Swelling present. Decreased range of motion. Legs: Feet: Skin: General: Skin is warm and dry. Findings: Erythema present. Comments: Payton. Tattoos B/L UE and LE. Piercing L eyebrow Erythema face Neurological: Mental Status: She is alert and oriented to person, place, and time. Cranial Nerves: Cranial nerves 2-12 are intact. Sensory: Sensory deficit present. Motor: Motor strength is normal.Weakness present. Comments: Positive Tinel's R wrist. 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 Oriented to person, place, and time. Cranial Nerves CN III, IV, : Extraocular movements intact bilaterally. Extraocular movements intact bilaterally. Pupils equal round and reactive to light bilaterally. Motor Strength is 5/5 throughout all four extremities. Positive Tinel's R wrist. 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 Assessment and Plan Encounter Diagnoses Name Primary? Rheumatoid arthritis involving multiple sites with positive rheumatoid factor Yes Lupus anticoagulant positive SS-B antibody positive SS-A antibody positive Positive double stranded DNA antibody test Long-term use of high-risk medication intermediate current use of non-steroidal anti-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 (NSAID) Hyperproteinemia History of systemic lupus erythematosus (SLE) History of DVT (deep vein thrombosis) Family history of gout Current use of watermaster anticoagulation Anti-cyclic citrullinated peptide antibody positive Vitamin D deficiency Hyperglycemia Carpal tunnel syndrome of right wrist Thoracic degenerative disc disease Primary osteoarthritis of right knee Primary osteoarthritis of right hip Osteoarthritis of sacroiliac joint Lumbar spondylosis Lumbar degenerative disc disease Localized osteoarthritis of right ankle Localized osteoarthritis of left ankle Gouty arthropathy Calcaneal spur of foot, left 1. Time was spent with the patient today in education in re: to all their medical conditions. A complete H&P&ROS was obtained and is either in this note or in the EHR. Please do not hesitate to contact me with any questions or concerns re: this patient. Past History Past medical, surgical, family, and social histories have been reviewed and updated with the patient today and are located elsewhere in the medical record. 2. Thank you for allowing me to participate in the care of your patient. With your permission I would like to F/U with your patient. 3. Uric acid was elevated at 6.5 and is now negative 4.8 4. CRP was elevated at 18.8 and is now negative at < 5.0 5. Patient stopped smoking 09/02/22 6. Enbrel stopped due to injection site reaction 7. Patient did not see chronic pain managment 8. Negative RF (times 2), Hep A&B&C serology, ANCA, CRYO Screen, HLA-B27, Celiac, , Lyme, SPEP/SIF, INSIDE CONTRACTOR SALES, Garnett, Scl-70, Bri-1,Chromatin, Centromere, 9. Patient has seen Hem/Onc and is on blood thinners for life 10. LAC was indeterminate 11. C3 was normal at 138 12. C4 was normal at 24 13. IF CTS problems continue rec: neuro eval and surgical eval if indicated. 14. EMG/NCV RUE R hand and wrist pain and paresthesias and weakness R/O CTS - patient declines NCV done 2 years ago was negative 15. Rx given for R wrist splint for R CTS - patient has wrist splints at home. 16. Patient given educational material on gout in the form of a pamphlet from the arthritis foundation. Patient should remain on Allopurinol life long. Would monitor CBC, LFT, Renal func, uric acid level every 6 - 12 months as long as patient on Allopurinol. Patient can take prednisone 5 mg 8 po q AM times one day decrease by one pill q day until off on a PRN basis any acute attack of gout. 17. Max dose of Gabapentin is 2400 mg a day and can be increased as indicated or tolerated. 18. TRACI level was normal at 60 19. Positive CCP at > 250 and then again at > 250 20. Positive KIKO (times 4) 21. dsDNA was elevated at 175.71 and then again at 80 22. SSB antibody was elevated at 2.6 and then again at 2.3 23. Insurance will not pay for Vit D per the patient which is despicable 24. SSA was elevated at 1.4 and then again at 2.2 25. Monitor Vit D level every 6 -12 months if remains low rec: eval by endo 26. ESR was elevated at 32 and is now negative at 19 27. Patient declines referral to Podiatry. (times 2) 28. Colchicine decreased to 1 pill every other day due to elevated LFT 29. Patient is taking IBP 30. TB test was negative 31. Monitor CBC/LFT/Renal func every 6-12 months as long as patient is on daily NSAID 32. TP is elevated at 8.3 33. Patient told can take Tylenol 34. Stop colchicine 35. 90 day supply on medications 36. Vit D3 2,000 units a day 37. Patient is going to try to get Rinvoq for free 38. Glucose was elevated at 108 and still is at 118 39. ALT was elevated at 56 and still is at 49 40. AST was elevated at 44 and still is at 40 41. Lab on or about 09/02/2023 42. Follow-up with me in 2 months 43. 44. 45. Patient given educational material on Sjogren's Syndrome in the form of a pamphlet from the arthritis foundation. Patient told that they could use OTC dry mouth preparations such as Biotene. Patient told they could use OTC artificial tears. 46. At patient's request will set up with chronic pain management. Patient see Dr. Sumner in 08/2023 47. Patient declines referral to sports medicine. 48. Samples (if we have them) and Rx given for Rinvoq 49. Tb test is negative 50. Hold Rinvoq 2 weeks before and 2 weeks after any surgery or live vaccine (shingles). Hold Rinvoq anytime have an infection and can restart once off of ATB and/or antiviral and free of infection. Hold rinvoq if have open wound and can restart once wound has healed. Would monitor CBC/LFT/Renal every 2 to 3 months on Rinvoq. Patient should get the Shingrix vaccine if not already done. 51. Rx given for PT/OT: will hold documented in this encounter [facility] 07-14-2023 Instructions Christina Awad MD, PhD - 07/14/2023 11:28 AM EST Images from the original note were not included. Bowel Preparation Instructions for: Miralax-Gatorade Preparations IF YOU DO NOT FOLLOW THESE DIRECTIONS, YOUR COLONOSCOPY WILL BE CANCELLED. Sahni Instructions: Your bowel must be empty so that your doctor can clearly view your colon. Follow all of the instructions in this handout EXACTLY as they are written. Do NOT eat any solid food the ENTIRE day before your colonoscopy. Buy your bowel preparation at least 5 days before your colonoscopy. Four (4) Dulcolax laxative tablets containing 5mg of bisacodyl each (NOT Dulcolax stool softener) One (1) 8.3oz. bottle Miralax (238 grams) or generic equivalent 2 x 32oz. Bottles of Gatorade (NOT RED) Diabetic Patients: Use G2 (Gatorade 2) TRANSPORTATION on the Day of Your Exam A responsible adult MUST be present with you at Check In prior to your colonoscopy and REMAIN in the endoscopy area until you are discharged. You are NOT ALLOWED to drive, take a taxi or bus, or leave the Endoscopy Center ALONE. If you do not have a responsible local tanker truck driver (family member or friend) with you to take you home, your exam cannot be done with sedation and will be cancelled. Please bring a list of all of your current medications, including any Egae-olb-Nuholtz medications with you. Medications If you take insulin, diabetic medications or blood thinners such as Coumadin (warfarin), Plavix (clopidogrel), Ticlid (ticlopidine hydrochloride), Agrylin (anagrelide), Xarelto (Rivaroxaban), Pradaxa (Dabigatran), Eliquis (Apixaban), and Effient (Prasugrel). You MUST call the doctors who orders those medicines for instructions on altering the dosage before your colonoscopy. All other medications should be taken the day of the exam with a sip of water including ASPIRIN. Five (5) Days Before Your Colonoscopy Do NOT take medicines that stop diarrhea - such as Imodium, Kaopectate, or Pepto Bismol. Do NOT take fiber supplements - such as Metamucil, Citrucel, or Perdiem. Do NOT take products that contain iron - such as multi-vitamins (the label lists what is in the products). Three (3) Days Before Your Colonoscopy Do NOT eat high-fiber foods - such as popcorn, beans, seeds (flax, sunflower, quinoa), multigrain bread, nuts, salad/vegetables, or fresh and dried fruit. 1 Bowel Preparation Instructions for: Miralax-Gatorade Preparations One (1) Day Before Your Colonoscopy Only drink clear liquids the ENTIRE DAY before your colonoscopy. Do NOT eat any solid foods. Drink at least 8 ounces of clear liquids every hour after waking up. The clear liquids you can drink include: Clear Liquid (NO RED LIQUIDS) DO NOT DRINK Gatorade, Pedialyte or Powerade Clear broth or bouillon Coffee or tea (no milk or non-dairy creamer) Carbonated and non-carbonated soft drinks Rashid-Aid or other fruit flavored drinks Strained fruit juices (no pulp) Jell-O, popsicles, hard candy Water Alcohol Milk or non-dairy creamers Noodles or vegetables in soup Juice with pulp Liquid you cannot see through Do not use tobacco/vaping products Mix 1/2 of Miralax bottle (119 grams) in each 32 ounces of Gatorade bottle until dissolved. Keep cool in the refrigerator. DO NOT ADD ICE. The bowel preparation solution will be consumed in two parts. Part 1 5:00 PM - Evening before your colonoscopy Take 4 Dulcolax tablets. 6 PM - Evening before your colonoscopy Drink 32 oz. of the mixed solution. Drink an 8 oz. glass of bowel preparation every 15 minutes for a total of 4 glasses. Fifteen (15) minutes later, drink an 8 oz. glass of of clear liquids every 15 minutes for a total of 2 glasses. You may continue to drink clear liquids till midnight. Part 2 On the day of your colonoscopy you may drink clear liquids up to (three) 3 hours prior to procedure. 4 1/2 hours before your colonoscopy Take another 32 oz. bottle of mixed solution. Drink an 8 oz. glass of bowel prep every 15 minutes for a total of 4 glasses. Fifteen (15) minutes later, drink an 8 oz. glass of clear liquids every 15 minutes for a total of 2 glasses. You may continue to drink clear liquids up to (three) 3 hours before your exam. 2 07/2019 documented in this encounter [facility] 07-14-2023 History and physical note COLORECTAL SURGERY New Patient Visit July 14, 2023 Chief Complaint: rectal bleeding History of Present Illness: Codi Eli is a 38 year old year old female who presents with rectal bleeding. She is a former patient of Dr. Gomez. 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 She now presents as she developed rectal bleeding. She had couple episodes with spontaneous rectal bleeding when she had blood in underwear. She also sees some blood in the stool. Good control of stool otherwise. Having Bm every day. Stool is not hard or diarrhea. She has ache in her bottom sometimes but not as bad pain as she had when she had a fissure. Of note she has history of lupus arthritis and she is on chronic anticoagulation and setting of hypercoagulable state. She takes Xarelto. She was told that she needs to be on Xarelto lifelong as she has history of DVT with lupus. In addition recently she has been having flares with her arthritis and she developed a lot of stiffness and pain in her hands. 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 She gained weight since Prednisone . Her face is swollen. I been trying to wean down the prednisone however it was unsuccessful and she continues to have pain in her joints. Denies family hx of colorectal cancer Cousin has CD. She states last colonoscopy was 3 years ago locally. She had 18 polyps. I do not have a report. Her Factor VIII level was 268% in 2020. From Dr. Gomez note on 01/03/23 Codi Eli is a 37 year old year old fema has a posterior opening that looks like a chronic [id number]. She also looks like she has a posterior anal fissure. I cannot do a full exam in the office. A probe seems to pass toward the posterior fissure from this external opening and it looks like the fissure has chronic rolled edges with some undermining. She is on Xarelto for something to do with her lupus and questionable hypercoagulable issues. She was off her Xarelto for the OR procedure. 10-31-22 Debridement of fissure and posterior fistulotomy. OPERATIVE FINDINGS: This is a posterior fissure with a fistula, which we did a fistulotomy on and really divided no muscle. The fistula was very superficial. We saucerized and debrided the edges of this fissure. She can restart her Xarelto on . She will be instructed to run her finger down the base of this wound to keep the wound edges open and encourage healing from the bottom up. PAST MEDICAL HISTORY Diagnosis Date Chronic rheumatic arthritis (HCC) Deep vein thrombosis (DVT) of popliteal vein of right lower extremity (HCC) Fistula Lupus (HCC) PAST SURGICAL HISTORY Procedure Laterality Date COLONOSCOPY SCREENING 2020 FISTULOTOMY SUBCUT 2004 INSERTION OF IUD PAST SURGICAL HISTORY OF 07/2022 Partial fistulotomy PAST SURGICAL HISTORY OF 2007 Fistulotomy PAST SURGICAL HISTORY OF Debridement of fissure and posterior fistulotomy. Current Outpatient Medications Medication Sig Dispense Refill TURMERIC ORAL Take by mouth once daily. docusate sodium (STOOL SOFTENER ORAL) Take by mouth once daily. (Patient not taking: Reported on 01/03/2023) acetaminophen 325 mg cap Take 500 mg by mouth as needed. OMEPRAZOLE ORAL Take by mouth once daily. rivaroxaban (XARELTO) 20 mg tablet Take 20 mg by mouth daily with dinner. gabapentin (NEURONTIN) 100 mg capsule Take two capsules by mouth at bedtime. cholecalciferol (VITAMIN D3) 50 mcg (2,000 unit) tablet Take two tablets by mouth once daily. levonorgestrel (MIRENA) 20 mcg/24 hr (5 years) IUD Inserted in office 1 Each 0 No current facility-administered medications for this visit. ALLERGIES Allergen Reactions Enbrel [Etanercept] Rash Review of Systems / PACC screen: Do you have difficulty climbing a full flight of stairs without feeling short of breath? no Do you require oxygen for your breathing or have your gone to an emergency department because of breathing problems? no Are you on dialysis or have you been told that your kidneys do not work well as they should? no Do have an implanted cardiac device (pacemaker, defibrillator etc.) that has not been checked in the last 6 months? no Have you had an organ transplant? no Have you been told that you had excessive bleeding during surgical procedures or do you take blood thinning medications other than aspirin? yes on XArelto Have you ever had a heart attack, heart stents/surgery, valve problems, or other heart problems? no Have you had a stroke, seizures, or unexplained loss of consciousness? no Do you have a neurologic condition like Parkinson's disease or multiple sclerosis? no Have you or a blood relative had a life-threatening reaction to anesthesia? no Do you have cirrhosis of the liver or other liver disease? no Have you had a blood clot within the past year? No, 5 years ago Do you take insulin or other injections for diabetes? no Do you have sleep apnea or have you been told you may have sleep apnea? no Do you have other implanted devices (deep brain stimulator, spinal cord stimulator, etc.)? no Physical Exam: [facility] 09/03/2016 (Exact Date) General Appearance: Obese Lungs: Unlabored on room air Heart: Not examined Edema: no Abdomen: Normal abdominal exam, Abdomen soft, non-tender. Bowel sounds normal. No masses, organomegaly Anorectal: Fistulotomy site is very well-healed. And the right anterior lateral position. Perianal skin is intact. No erythema, induration or excoriation. No fissure, fistula or external hemorrhoids. Digital Rectal Exam: Anus: closed Resting tone: NORMAL Squeeze tone: NORMAL Zigzag Stitcher present: Yes Flexible sigmoidoscopy: Procedure: The patient was placed in left lateral position. After digital exam with a lubricated finger, the scope was easily inserted to 15 cm. Findings: The preparation was fair. There were multiple polyps in rectum. There was no bleeding mass. She had hemorrhoids. There was no active bleeding. 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 History of colonoscopy with multiple polyps few years ago. Flexible sigmoidoscopy performed in office and shows multiple polyps in the rectum. In addition has internal hemorrhoids which are not actively bleeding right now. Data Reviewed: Tests & Documents Reviewed/ordered: Review of prior notes from [facility] Review of Pathology Review of Labs: CBC, BMP Review of Procedures / Tests: Flexible Sigmoidoscopy Assessment by: Caregiver Additional testing or imaging to be ordered: colonoscopy, EGD I have independently interpreted: n/a I have discussed Codi Eli's treatment plan and/or results with her. Treatment plan: Would recommend to obtain full colonoscopy given multiple polyps in the rectum now on flexible sigmoidoscopy and also upper endoscopy in setting of recent steroids to rule out peptic ulcer disease. She does have internal hemorrhoid on the anoscopy. For that recommend to optimize her bowel function with that we will start Metamucil daily. Avoid straining. Use squatty potty. Drink least 2 L of water. Okay to start Xarelto today. She will need to hold it before colonoscopy and endoscopy. Return to see me in 6 weeks with colonoscopy report. If colonoscopy is negative for source of bleeding will be on the hemorrhoids. 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 Explained the need to wean off steroids as soon as possible. She refuses. Colorectal Surgery Risk of morbidity, mortality and/or complications of treatment plan: high documented in this encounter [facility] 05-19-2023 History of Presen t illness Narrative Images from the original note were not included. Subjective History of Present Illness Humira started 02/2021. It has been so long patient does not remember if the Humira helped her. Humira did not bother her. Patient can not remember her last dose of Humira. Patient does not want to take shots. Presence of Pain: complains of pain/discomfort Select Pain Scale: DVPRS (Defense and Veterans Pain Rating Scale) (Adult-Cognitively Intact) DVPRS: Rest: 7- severe pain Select Pain Scale: DVPRS (Defense and Veterans Pain Rating Scale) (Adult-Cognitively Intact). Total time spent in this encounter was 47 minutes. Patient is being evaluated for an unstable chronic illness that increase morbidity and mortality. 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 Dry mouth is no. Dry eyes. Rash is no. Joint pain is yes. God yes. Patient is here for 4 week F/U. Patient states that she sore all over. States that feet, hands, and right shoulder hurt the most. Patient has had a serious adverse event to medication which could have increased morbidity or mortality. Patient hs been taking prednisone every day which is not as instructed and I have been told that prednisone is a high risk medication. Still not smoking. Patient is not wearing wrist splints. Objective Review of Systems Constitutional: Negative. HENT: Negative. Eyes: Negative. Respiratory: Negative. Cardiovascular: Negative. Gastrointestinal: Negative. Endocrine: Negative. Genitourinary: Negative. Musculoskeletal: Positive for arthralgias. Skin: Negative. Allergic/Immunologic: Negative. Neurological: Negative. Hematological: Negative. Vitals: Blood pressure 128/74, pulse 82, temperature 98.7 F (37.1 C), temperature source Temporal, height 1.702 m (5' 7 ), weight 117.9 kg (259 lb 14.8 oz), SpO2 97 %. Physical Exam Vitals and nursing note reviewed. Constitutional: Appearance: She is well-developed. She is obese. HENT: Head: Normocephalic and atraumatic. Right Ear: External ear normal. Left Ear: External ear normal. Nose: Nose normal. Mouth/Throat: Mouth: Mucous membranes are moist. Pharynx: Oropharynx is clear. Eyes: Extraocular Movements: Extraocular movements intact and EOM normal. Conjunctiva/sclera: Conjunctivae normal. Pupils: Pupils are equal, round, and reactive to light. Cardiovascular: Rate and Rhythm: Normal rate and regular rhythm. Pulses: Radial pulses are 2+ on the right side and 2+ on the left side. Heart sounds: Normal heart sounds. Pulmonary: Effort: Pulmonary effort is normal. Breath sounds: Normal breath sounds. Abdominal: General: Bowel sounds are normal. Palpations: Abdomen is soft. Comments: obese Musculoskeletal: Right shoulder: Decreased range of motion. Left shoulder: Decreased range of motion. Right upper arm: Normal. Left upper arm: Normal. Right elbow: Normal. Left elbow: Normal. Right forearm: Normal. Left forearm: Normal. Right wrist: Crepitus present. Decreased range of motion. Left wrist: Crepitus present. Decreased range of motion. Right hand: Decreased strength. Left hand: Decreased strength. Cervical back: Neck supple. Right upper leg: Normal. Left upper leg: Normal. Right knee: Crepitus present. Decreased range of motion. Tenderness present. Left knee: Crepitus present. Decreased range of motion. Right lower le+ Edema present. Left lower le+ Edema present. Right ankle: Swelling present. Decreased range of motion. Left ankle: Swelling present. Decreased range of motion. Legs: Feet: Skin: General: Skin is warm and dry. Findings: Erythema present. Comments: Payton. Tattoos B/L UE and LE. Piercing L eyebrow Erythema face Neurological: Mental Status: She is alert and oriented to person, place, and time. Cranial Nerves: Cranial nerves 2-12 are intact. Sensory: Sensory deficit present. Motor: Motor strength is normal.Weakness present. Comments: Positive Tinel's R wrist. 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 Oriented to person, place, and time. Cranial Nerves CN III, IV, : Extraocular movements intact bilaterally. Extraocular movements intact bilaterally. Pupils equal round and reactive to light bilaterally. Motor Strength is 5/5 throughout all four extremities. Positive Tinel's R wrist. 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 Assessment and Plan Encounter Diagnoses Name Primary? 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 Time was spent with the patient today in education in re: to all their medical conditions. A complete H&P&ROS was obtained and is either in this note or in the EHR. Please do not hesitate to contact me with any questions or concerns re: this patient. Past History Past medical, surgical, family, and social histories have been reviewed and updated with the patient today and are located elsewhere in the medical record. 2. Thank you for allowing me to participate in the care of your patient. With your permission I would like to F/U with your patient. 3. Uric acid was elevated at 7.0 and still is at 6.5 4. CRP was negative at 8.2 and still is at 18.8 5. Patient stopped smoking 09/02/22 6. Enbrel stopped due to injection site reaction 7. Patient did not see chronic pain managment 8. Negative RF (times 2), Hep A&B&C serology, ANCA, CRYO Screen, HLA-B27, Celiac, , Lyme, SPEP/SIF, [employer] SALES, [place], Scl-70, Bri-1,Chromatin, Centromere, 9. Patient has seen Hem/Onc and is on blood thinners for life 10. LAC was indeterminate 11. C3 was normal at 155 and still is at 138 12. C4 was normal at 28 and still is at 24 13. IF CTS problems continue rec: neuro eval and surgical eval if indicated. 14. EMG/NCV RUE R hand and wrist pain and paresthesias and weakness R/O CTS - patient declines NCV done 2 years ago was negative 15. Rx given for R wrist splint for R CTS - patient has wrist splints at home. 16. Patient given educational material on gout in the form of a pamphlet from the arthritis foundation. Patient should remain on Allopurinol life long. Would monitor CBC, LFT, Renal func, uric acid level every 6 - 12 months as long as patient on Allopurinol. Patient can take prednisone 5 mg 8 po q AM times one day decrease by one pill q day until off on a PRN basis any acute attack of gout. 17. Max dose of Gabapentin is 2400 mg a day and can be increased as indicated or tolerated. 18. TRACI level was normal at 60 19. Positive CCP at > 250 and still is at > 250 20. Positive KIKO (times 4) 21. dsDNA was elevated at 175.71 and still is at 80 22. SSB antibody was elevated at 2.6 and still is at 2.3 23. Insurance will not pay for Vit D per the patient which is despicable 24. SSA was elevated at 1.4 and still is at 2.2 25. Monitor Vit D level every 6 -12 months if remains low rec: eval by endo 26. ESR was normal at 13 and still is at 32 27. Patient declines referral to Podiatry. (times 2) 28. Colchicine decreased to 1 pill every other day due to elevated LFT 29. Patient is taking IBP 30. TB test was negative 31. Monitor CBC/LFT/Renal func every 6-12 months as long as patient is on daily NSAID 32. Rx given for Allopurinol 300 mg 1 1/2 pills a day. 33. Patient told can take Tylenol 34. Stop colchicine 35. 90 day supply on medications 36. Vit D3 2,000 units a day 37. If R knee problems continue rec: ortho eval 38. Glucose is elevated at 108 and patient is going to F/U with PCP 39. ALT is elevated at 56 40. AST is elevated at 44 41. Repeat LFT on or about 05/24/2023 42. Patient given educational material on OA in the from of a pamphlet from the arthritis foundation. Patient told that PT and keeping ideal body wt would be the cornerstone of treatment 43. Patient was given educational material on RA. Different treatment options were discussed with the patient today. Patient should get the Shingrix vaccine if not already done 44. Patient given educational material on SLE in the form of a pamphlet from the arthritis foundation. Different treatment options were discussed with the patient today. 45. Patient given educational material on Sjogren's Syndrome in the form of a pamphlet from the arthritis foundation. Patient told that they could use OTC dry mouth preparations such as Biotene. Patient told they could use OTC artificial tears. 46. At patient's request will set up with chronic pain management 47. Patient declines referral to sports medicine. 48. Samples (if we have them) and Rx given for Rinvoq 49. Tb test today 50. Hold Rinvoq 2 weeks before and 2 weeks after any surgery or live vaccine (shingles). Hold Rinvoq anytime have an infection and can restart once off of ATB and/or antiviral and free of infection. Hold rinvoq if have open wound and can restart once wound has healed. Would monitor CBC/LFT/Renal every 2 to 3 months on Rinvoq. Patient should get the Shingrix vaccine if not already done. 51. Rx given for Prednisone 5 mg 4 pills a day for 2 weeks then 3 pills a day for 2 weeks then 2 pills a day for 2 weeks then 1 pill a day thereafter. 55. Lab on or about 07/03/2023 56. F/U with me in 2 months 57. Rx given for PT/OT: will hold documented in this encounter [facility] 04-10-2023 History of Presen t illness Narrative Images from the original note were not included. History of Present Illness Humira started 02/2021. It has been so long patient does not remember if the Humira helped her. Humira did not bother her. Patient can not remember her last dose of Humira. Patient does not want to take shots. Presence of Pain: complains of pain/discomfort Pain Location: hip, right, knee, right, ankle, right Select Pain Scale: DVPRS (Defense and Veterans Pain Rating Scale) (Adult-Cognitively Intact) DVPRS: Rest: 7- severe pain DVPRS: Activity: 7- severe pain Select Pain Scale: DVPRS (Defense and Veterans Pain Rating Scale) (Adult-Cognitively Intact) Pain Frequency: constant Pain Quality: aching. Total time spent in this encounter was 43 minutes. Patient is being evaluated for an unstable chronic illness that increase morbidity and mortality. Patient's lack of compliance makes treatment very difficult. Leg swelling is down now. Joint pain is yeah. Patient states she has not been good since her last appointment. Patient states she has been off the Humira more than a year. Allopurinol did not bother her. Colchicine did not bother her. Methotrexate did not bother her. No dry eye or mouth. Review of Systems Constitutional: Negative. HENT: Negative. Eyes: Negative. Respiratory: Negative. Cardiovascular: Negative. Gastrointestinal: Negative. Endocrine: Negative. Genitourinary: Negative. Musculoskeletal: Positive for arthralgias. Skin: Negative. Allergic/Immunologic: Negative. Neurological: Negative. Hematological: Negative. Vitals: Blood pressure 122/60. Physical Exam Vitals and nursing note reviewed. Constitutional: Appearance: She is well-developed. She is obese. HENT: Head: Normocephalic and atraumatic. Right Ear: External ear normal. Left Ear: External ear normal. Nose: Nose normal. Mouth/Throat: Mouth: Mucous membranes are moist. Pharynx: Oropharynx is clear. Eyes: Extraocular Movements: Extraocular movements intact and EOM normal. Conjunctiva/sclera: Conjunctivae normal. Pupils: Pupils are equal, round, and reactive to light. Cardiovascular: Rate and Rhythm: Normal rate and regular rhythm. Pulses: Radial pulses are 2+ on the right side and 2+ on the left side. Heart sounds: Normal heart sounds. Pulmonary: Effort: Pulmonary effort is normal. Breath sounds: Normal breath sounds. Abdominal: General: Bowel sounds are normal. Palpations: Abdomen is soft. Comments: obese Musculoskeletal: Right shoulder: Decreased range of motion. Left shoulder: Decreased range of motion. Right upper arm: Normal. Left upper arm: Normal. Right elbow: Normal. Left elbow: Normal. Right forearm: Normal. Left forearm: Normal. Right wrist: Crepitus present. Decreased range of motion. Left wrist: Crepitus present. Decreased range of motion. Right hand: Decreased strength. Left hand: Decreased strength. Cervical back: Neck supple. Right upper leg: Normal. Left upper leg: Normal. Right knee: Crepitus present. Decreased range of motion. Tenderness present. Left knee: Crepitus present. Decreased range of motion. Right lower le+ Edema present. Left lower le+ Edema present. Right ankle: Swelling present. Decreased range of motion. Left ankle: Swelling present. Decreased range of motion. Legs: Feet: Skin: General: Skin is warm and dry. Comments: Payton. Tattoos B/L UE and LE. Piercing L eyebrow Neurological: Mental Status: She is alert and oriented to person, place, and time. Cranial Nerves: Cranial nerves 2-12 are intact. Sensory: Sensory deficit present. Motor: Motor strength is normal.Weakness present. Comments: Positive Tinel's R wrist. 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 Oriented to person, place, and time. Cranial Nerves CN III, IV, : Extraocular movements intact bilaterally. Extraocular movements intact bilaterally. Pupils equal round and reactive to light bilaterally. Motor Strength is 5/5 throughout all four extremities. Positive Tinel's R wrist. 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 Assessment and Plan Encounter Diagnoses Name Primary? Gouty arthropathy Yes Localized osteoarthritis of left ankle Localized osteoarthritis of right ankle Lumbar degenerative disc disease Osteoarthritis of sacroiliac joint Thoracic degenerative disc disease Lupus anticoagulant positive Anti-cyclic citrullinated peptide antibody positive Current use of skilled nursing anticoagulation Family history of gout History of DVT (deep vein thrombosis) History of rheumatoid arthritis History of systemic lupus erythematosus (SLE) intermediate current use of systemic steroids Long-term use of high-risk medication Methotrexate, watermaster, current use Noncompliance Patient non adherence Positive 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 Time was spent with the patient today in education in re: to all their medical conditions. A complete H&P&ROS was obtained and is either in this note or in the EHR. Please do not hesitate to contact me with any questions or concerns re: this patient. Past History Past medical, surgical, family, and social histories have been reviewed and updated with the patient today and are located elsewhere in the medical record. 2. Thank you for allowing me to participate in the care of your patient. With your permission I would like to F/U with your patient. 3. Uric acid was elevated at 8.1 and still is at 7.0 4. CRP was negative at 8.2 5. Patient stopped smoking 09/02/22 6. Enbrel stopped due to injection site reaction 7. Patient did not see chronic pain managment 8. Negative RF (times 2), Hep A&B&C serology, ANCA, CRYO Screen, HLA-B27, Celiac, , Lyme, SPEP/SIF, 9. Patient has seen Hem/Onc and is on blood thinners for life 10. LAC is indeterminate 11. C3 was normal at 155 12. C4 was normal at 28 13. IF CTS problems continue rec: neuro eval and surgical eval if indicated. 14. EMG/NCV RUE R hand and wrist pain and paresthesias and weakness R/O CTS - patient declines NCV done 2 years ago was negative 15. Rx given for R wrist splint for R CTS - patient has wrist splints at home. 16. Patient given educational material on gout in the form of a pamphlet from the arthritis foundation. Patient should remain on Allopurinol life long. Would monitor CBC, LFT, Renal func, uric acid level every 6 - 12 months as long as patient on Allopurinol. Patient can take prednisone 5 mg 8 po q AM times one day decrease by one pill q day until off on a PRN basis any acute attack of gout. 17. Max dose of Gabapentin is 2400 mg a day and can be increased as indicated or tolerated. 18. TRACI level was normal at 60 19. Positive CCP at > 250 20. Positive KIKO (times 3)) 21. dsDNA is elevated at 175.71 22. SSB antibody is elevated at 2.6 23. Insurance will not pay for Vit D per the patient which is despicable 24. SSA is elevated at 1.4 25. Monitor Vit D level every 6 -12 months if remains low rec: eval by endo 26. ESR was elevated at 54 and is now normal at 13 27. Patient declines referral to Podiatry 28. Rx given for allopurinol 300 mg 1 pill a day 29. Lab on or about and every 2 months thereafter 30. TB test was negative 31. Rx given for Colchicine 0.6 mg 1 pill A day can decrease to 1 pill every other day if diarrhea 32. TB test was negative 33. Patient told can take Tylenol 34. Stop colchicine on or about 10/11/2023 35. 90 day supply on medications 36. Vit D3 2,000 units a day 37. Hold Humira 2 weeks before and 2 weeks after any surgery or live vaccine (shingles). Hold Humira anytime have an infection can restart once of off ATB and/or antiviral and free of infection. Hold Humira if open wound can restart once wound has healed. 38. Rx given for Prednisone 5 mg 8 pills one day decrease by 1 pill a day until off to be used as needed 39. Lab on or about 04/27/2023 40. F/U with me in 1 month 41. X-ray R knee 42. If R knee problems continue rec: ortho eval documented in this encounter [facility] 01-03-2023 Note HNO ID: [id number] Author: Sadia Gomez MD Service: ? Author Type: Physician Type: Progress Notes Filed: 01/03/2023 9:34 AM Note Text: COLORECTAL SURGERY January 03, 2023 Chief Complaint: wound check History of Present Illness: Codi Eli is a 37 year old year old fema has a posterior opening that looks like a chronic [id number]. She also looks like she has a posterior anal fissure. I cannot do a full exam in the office. A probe seems to pass toward the posterior fissure from this external opening and it looks like the fissure has chronic rolled edges with some undermining. She is on Xarelto for something to do with her lupus and questionable hypercoagulable issues. She was off her Xarelto for the OR procedure. 10-31-22 Debridement of fissure and posterior fistulotomy. OPERATIVE FINDINGS: This is a posterior fissure with a fistula, which we did a fistulotomy on and really divided no muscle. The fistula was very superficial. We saucerized and debrided the edges of this fissure. She can restart her Xarelto on . She will be instructed to run her finger down the base of this wound to keep the wound edges open and encourage healing from the bottom up. 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 Current Outpatient Medications Medication Sig Dispense Refill acetaminophen 325 mg cap Take 500 mg by mouth as needed. OMEPRAZOLE ORAL Take by mouth once daily. rivaroxaban (XARELTO) 20 mg tablet Take 20 mg by mouth daily with dinner. gabapentin (NEURONTIN) 100 mg capsule Take two capsules by mouth at bedtime. cholecalciferol (VITAMIN D3) 50 mcg (2,000 unit) tablet Take two tablets by mouth once daily. levonorgestrel (MIRENA) 20 mcg/24 hr (5 years) IUD Inserted in office 1 Each 0 TURMERIC ORAL Take by mouth once daily. docusate sodium (STOOL SOFTENER ORAL) Take by mouth once daily. (Patient not taking: Reported on 01/03/2023) No current facility-administered medications for this visit. ALLERGIES Allergen Reactions Enbrel [Etanercept] Rash Social History Tobacco Use Smoking status: Former Packs/day: 0.50 Years: 20.00 Pack years: 10.00 Types: Cigarettes Quit date: 08/2022 Years since quittin.3 Smokeless tobacco: Never Vaping Use Vaping Use: Never used Substance Use Topics Alcohol use: Yes Comment: social Drug use: No Review of Systems / PACC screen: Do you have difficulty climbing a full flight of stairs without feeling short of breath? no Do you require oxygen for your breathing or have your gone to an emergency department because of breathing problems? no Are you on dialysis or have you been told that your kidneys do not work well as they should? no Do have an implanted cardiac device (pacemaker, defibrillator etc.) that has not been checked in the last 6 months? no Have you had an organ transplant? no Have you been told that you had excessive bleeding during surgical procedures or do you take blood thinning medications other than aspirin? yes Xarelto Have you ever had a heart attack, heart stents/surgery, valve problems, or other heart problems? no Have you had a stroke, seizures, or unexplained loss of consciousness? no Do you have a neurologic condition like Parkinson's disease or multiple sclerosis? no Have you or a blood relative had a life-threatening reaction to anesthesia? no Do you have cirrhosis of the liver or other liver disease? no Have you had a blood clot within the past year? no Do you take insulin or other injections for diabetes? no Do you have sleep apnea or have you been told you may have sleep apnea? no Do you have other implanted devices (deep brain stimulator, spinal cord stimulator, etc.)? yes IUD REVIEW OF SYSTEMS PAIN ASSESSMENT: Negative for pain, history of chronic pain, or current treatment for a chronic pain condition. GENERAL: No weight loss, malaise or fevers HEENT: Negative for frequent or significant headaches, No changes in hearing or vision, no nose bleeds or other nasal problems NECK: Negative for lumps, goiter, pain and significan (more content not included)... [facility] 11-27-2022 Note HNO ID: [id number] Author: Watson Donaldson APRN.BOBBIN HAULER Service: ? Author Type: Nurse Practitioner Type: Progress Notes Filed: 11/28/2022 2:38 PM Note Text: COLORECTAL SURGERY Post-Op Visit November 27, 2022 Codi Eli returns for a post-operative visit after undergoing on 10/31/22 debridement of fissure and posterior fistulotomy for posterior [id number] and fissure. Her post-operative period was uncomplicated. She is tolerating diet with an improving appetite, stable weight, and energy level is improving . 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 Feels she may be in a flare - last visit to deputy county clerk about one year ago - in the past has been treated with prednisone Had work-up by Dr Craig for clotting disorder - currently still on Xarelto Current Outpatient Medications Medication Sig Dispense Refill docusate sodium (STOOL SOFTENER ORAL) Take by mouth once daily. OMEPRAZOLE ORAL Take by mouth once daily. rivaroxaban (XARELTO) 20 mg tablet Take 20 mg by mouth daily with dinner. cholecalciferol (VITAMIN D3) 50 mcg (2,000 unit) tablet Take two tablets by mouth once daily. levonorgestrel (MIRENA) 20 mcg/24 hr (5 years) IUD Inserted in office 1 Each 0 acetaminophen (TYLENOL) 325 mg cap Take 500 mg by mouth as needed. gabapentin (NEURONTIN) 100 mg capsule Take two capsules by mouth at bedtime. (Patient not taking: Reported on 11/28/2022) No current facility-administered medications for this visit. ALLERGIES Allergen Reactions Enbrel [Etanercept] Rash Ht 167.6 cm (5' 6 ) Wt 108.4 kg (239 lb) LMP 09/03/2016 (Exact Date) BMI 38.58 kg/m? Anal wound much improved, healing, still raw surface which explain the pain she is having LYNDSEY not attempted - too sore - the raw wound extends inside the anal canal Zigzag Stitcher present: Yes, [place] Assessment Assessment: Codi Eli is a 37 year old female who is 4 weeks status post 10/31/22 debridement of fissure and posterior fistulotomy for posterior [id number] and fissure. . Expected post-op recovery Healing wound Plan Plan: Continue with daily wound care with shower Avoid constipation and straining She will schedule appt with local deputy county clerk Will contact Dr Craig re recommendation for continuing or stopping Xarelto She would like to extend the leave until 01/[address] Gomez The wound is still raw and she does not feel will be able to work the strenuous job she has Since she had difficulty sitting on hard surface for extended period of time suggested she uses a cushion Follow-up with Dr Gomez on 01/03/23 in the office to evaluate the wound All questions answered Invited to call office with any questions or concerns. Watson Donaldson APRN.[facility] 11-27-2022 History of Presen t illness Narrative Images from the original note were not included. COLORECTAL SURGERY Post-Op Visit November 27, 2022 Codi Eli returns for a post-operative visit after undergoing on 10/31/22 debridement of fissure and posterior fistulotomy for posterior [id number]-wmr and fissure. Her post-operative period was uncomplicated. She is tolerating diet with an improving appetite, stable weight, and energy level is improving . 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 Feels she may be in a flare - last visit to deputy county clerk about one year ago - in the past has been treated with prednisone Had work-up by Dr Craig for clotting disorder - currently still on Xarelto Current Outpatient Medications Medication Sig Dispense Refill docusate sodium (STOOL SOFTENER ORAL) Take by mouth once daily. OMEPRAZOLE ORAL Take by mouth once daily. rivaroxaban (XARELTO) 20 mg tablet Take 20 mg by mouth daily with dinner. cholecalciferol (VITAMIN D3) 50 mcg (2,000 unit) tablet Take two tablets by mouth once daily. levonorgestrel (MIRENA) 20 mcg/24 hr (5 years) IUD Inserted in office 1 Each 0 acetaminophen (TYLENOL) 325 mg cap Take 500 mg by mouth as needed. gabapentin (NEURONTIN) 100 mg capsule Take two capsules by mouth at bedtime. (Patient not taking: Reported on 11/28/2022) No current facility-administered medications for this visit. ALLERGIES Allergen Reactions Enbrel [Etanercept] Rash Ht 167.6 cm (5' 6 ) Wt 108.4 kg (239 lb) LMP 09/03/2016 (Exact Date) BMI 38.58 kg/m Anal wound much improved, healing, still raw surface which explain the pain she is having LYNDSEY not attempted - too sore - the raw wound extends inside the anal canal Zigzag Stitcher present: Yes, [place] Assessment Assessment: Codi Eli is a 37 year old female who is 4 weeks status post 10/31/22 debridement of fissure and posterior fistulotomy for posterior smojfei-sp-itw and fissure. . Expected post-op recovery Healing wound Plan Plan: Continue with daily wound care with shower Avoid constipation and straining She will schedule appt with local deputy county clerk Will contact Dr Craig re recommendation for continuing or stopping Xarelto She would like to extend the leave until 01/[address] Gomez The wound is still raw and she does not feel will be able to work the strenuous job she has Since she had difficulty sitting on hard surface for extended period of time suggested she uses a cushion Follow-up with Dr Gomez on 01/03/23 in the office to evaluate the wound All questions answered Invited to call office with any questions or concerns. Watson Donaldson APRN.CNP documented in this encounter [facility] 11-04-2022 Note HNO ID: [id number] Author: Watson Donaldson APRN.CNP Service: ? Author Type: Nurse Practitioner Type: Progress Notes Filed: 11/08/2022 10:07 PM Note Text: COLORECTAL SURGERY VIRTUAL VISIT FOLLOW UP I had a virtual visit with Ms. Eli today for post-op follow up I have communicated my name and active licensure. The patient's identity and physical location were verified at the time of this visit. Either the patient or their legal digital media representative has been informed of the risks and benefits of -- and alternatives to -- treatment through a remote evaluation and consents to proceed with the evaluation remotely. UPDATED HISTORY: Codi Eli is a 37 year old female s/p 10/31/22 Debridement of fissure and posterior fistulotomy. Reports she is feeling better, less pain, continues to have blood tinged drainage from the wound Moves bowel movements daily and rinses the wound PHYSICAL FINDINGS OF NOTE: Patient reported height 5' and weight 237 lbs General - healthy, cooperative, in no acute distress, alert Able to interact verbally by video conference Pulmonary - respiratory effort normal Abdominal -Not performed Motor - patient seen sitting with Normal appearing strength and coordination Anorectal exam - Not Performed Medical Decision Making: Assessment Assessment AND Diagnosis: Codi Eli is a 37 year old female s/p 10/31/22 Debridement of fissure and posterior fistulotomy. Expected post-op recovery, healing incision Data Reviewed: Tests AND Documents Reviewed/ordered: Review of prior operative reports and all other pertinent notes Treatment plan: Continue discharge instructions Run finger over the wound to prevent edges from coming together prematurely Avoid constipation and straining Follow-up video visit on 11/28 All questions answered Invited to call office with any questions or concerns. Watson Donaldson APRN.[facility] Risk of morbidity, mortality and/or complications of treatment plan: low I spent a total of 25 minutes on the date of the service which included . preparing to see the patient, [id number] patient care, completing clinical documentation, obtaining and/or reviewing separately obtained history, counseling and educating the patient/family/caregiver, and care coordination (not separately reported) [facility] 11-04-2022 History of Presen t illness Narrative COLORECTAL SURGERY VIRTUAL VISIT FOLLOW UP I had a virtual visit with Ms. Eil today for post-op follow up I have communicated my name and active licensure. The patient's identity and physical location were verified at the time of this visit. Either the patient or their legal digital media representative has been informed of the risks and benefits of -- and alternatives to -- treatment through a remote evaluation and consents to proceed with the evaluation remotely. UPDATED HISTORY: Codi Eli is a 37 year old female s/p 10/31/22 Debridement of fissure and posterior fistulotomy. Reports she is feeling better, less pain, continues to have blood tinged drainage from the wound Moves bowel movements daily and rinses the wound PHYSICAL FINDINGS OF NOTE: Patient reported height 5' and weight 237 lbs General - healthy, cooperative, in no acute distress, alert Able to interact verbally by video conference Pulmonary - respiratory effort normal Abdominal -Not performed Motor - patient seen sitting with Normal appearing strength and coordination Anorectal exam - Not Performed Medical Decision Making: Assessment Assessment & Diagnosis: Codi Eli is a 37 year old female s/p 10/31/22 Debridement of fissure and posterior fistulotomy. Expected post-op recovery, healing incision Data Reviewed: Tests & Documents Reviewed/ordered: Review of prior operative reports and all other pertinent notes Treatment plan: Continue discharge instructions Run finger over the wound to prevent edges from coming together prematurely Avoid constipation and straining Follow-up video visit on 11/28 All questions answered Invited to call office with any questions or concerns. Watson Donaldson APRN.CNP Risk of morbidity, mortality and/or complications of treatment plan: low I spent a total of 25 minutes on the date of the service which included . preparing to see the patient, [id number] patient care, completing clinical documentation, obtaining and/or reviewing separately obtained history, counseling and educating the patient/family/caregiver, and care coordination (not separately reported) documented in this encounter [facility] 10-31-2022 Note HNO ID: [id number] Author: Lizzy Torres APRN.CRNA Service: ? Author Type: Nurse Engineer Technician Type: Anesthesia Procedure Notes Filed: 10/31/2022 7:44 AM Note Text: ANESTHESIOLOGY PROCEDURE NOTE Airway General Information Procedure Start Time/Medication Administration: 10/31/2022 7:29 AM Patient location during procedure: OR Timeout Performed Pre-procedure: timeout performed Consent Obtained: Yes Patient identity confirmed: arm band, care cleaning team member and patient Staffing Performed by: A CLASS LINEMAN Indications and Patient Condition Indications for airway management: anesthesia and airway protection Preoxygenated: yes anesthesia circuit Patient position: sniffing Method: asleep Cricoid Pressure: Yes Airway Accessory: oral airway Final Airway Details Final airway type: endotracheal airway Final Endotracheal Airway: ETT Cuffed: yes Successful intubation technique: video laryngoscopy Devices used: Beebe Endotracheal tube insertion site: oral Blade size: #3 ETT size (mm): 7.5 Measured from: lips Placement verified by: chest auscultation and capnometry Cormack-Lehane Classification: grade I - full view of glottis Number of attempts at approach: 1 SIGNATURE: Lizzy Torres APRN.CRNA PATIENT NAME: Codi Eli DATE: October 31, 2022 TIME: 7:44 AM CSN: [id number] [facility] 10-24-2022 Note HNO ID: [id number] Author: Gianfranco Craig MD Service: ? Author Type: Physician Type: Progress Notes Filed: 10/24/2022 2:07 PM Note Text: Consultation requested by Dr. Gomez for an opinion regarding coagulopathy. My final recommendations will be communicated back to the requesting physician by way of shared Medical record or letter to requesting physician via US mail. This 37-year-old woman has an anal fissure that needs surgery Monday of next week. She is on Xarelto ever since a DVT about 4 years ago. She was seen by Dr. Bhagat. He did lab studies that showed an elevated factor VIII and a lupus anticoagulant. She has been on the Xarelto since that time. For procedures she has stopped the Xarelto for few days has a procedure and then gets back on the Xarelto usually by the next day. She does not get Lovenox or heparin bridging. She has never had a pulmonary embolism. She was not on control pills when this clot occurred. She has an IUD now. She has lupus and rheumatoid arthritis by rheumatologic history with Dr. Ruby, and did take medications for this but they caused other problems so she stopped and has not been back to them for a few years. Her Factor VIII level was 268% in 2019. She is not aware of any family history that came up during her discussion about clotting. She has never been . Review of systems reveals no heart lung liver or kidney problems, she had a creatinine recently which was normal, never a stroke or visual change. All other systems are reviewed and are negative She used to smoke but does not smoke now. 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 She has no bleeding issues on the Xarelto. She takes 20 mg/day. On exam she has some xanthelasma on her left upper eyelid, which she says is just been there for the past month, no jaundice no adenopathy she is little overweight pharynx and tongue are normal heart and lung sound normal abdomen soft nontender, wondering whether and feeling spleen tip just palpable no left upper quadrant but it is difficult to be certain, I did not inspect the anal region but Dr. Suarez has seen her and has made these arrangements for surgery on Monday, neurologic exam nonfocal, no petechiae ecchymoses Assessment anal fissure needing surgery I agree with the idea of stopping the Xarelto Monday meaning not taking it Monday or Monday. On Monday morning prior to the surgery when asked Dr Gomez's team to draw a lupus anticoagulant assay. Today I will draw Factor VIII level lipoprotein a lipid panel, CMP, and depending upon above results further testing might be indicated. The big issue is to get that lupus anticoagulant drawn on Monday when she is got no Xarelto in her system. Dr. Gianfranco Craig [facility] 10-24-2022 History of Presen t illness Narrative Consultation requested by Dr. Gomez for an opinion regarding coagulopathy. My final recommendations will be communicated back to the requesting physician by way of shared Medical record or letter to requesting physician via US mail. This 37-year-old woman has an anal fissure that needs surgery Monday of next week. She is on Xarelto ever since a DVT about 4 years ago. She was seen by Dr. Bhagat. He did lab studies that showed an elevated factor VIII and a lupus anticoagulant. She has been on the Xarelto since that time. For procedures she has stopped the Xarelto for few days has a procedure and then gets back on the Xarelto usually by the next day. She does not get Lovenox or heparin bridging. She has never had a pulmonary embolism. She was not on control pills when this clot occurred. She has an IUD now. She has lupus and rheumatoid arthritis by rheumatologic history with Dr. Ruby, and did take medications for this but they caused other problems so she stopped and has not been back to them for a few years. Her Factor VIII level was 268% in 2019. She is not aware of any family history that came up during her discussion about clotting. She has never been . Review of systems reveals no heart lung liver or kidney problems, she had a creatinine recently which was normal, never a stroke or visual change. All other systems are reviewed and are negative She used to smoke but does not smoke now. 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 She has no bleeding issues on the Xarelto. She takes 20 mg/day. On exam she has some xanthelasma on her left upper eyelid, which she says is just been there for the past month, no jaundice no adenopathy she is little overweight pharynx and tongue are normal heart and lung sound normal abdomen soft nontender, wondering whether and feeling spleen tip just palpable no left upper quadrant but it is difficult to be certain, I did not inspect the anal region but Dr. Suarez has seen her and has made these arrangements for surgery on Monday, neurologic exam nonfocal, no petechiae ecchymoses Assessment anal fissure needing surgery I agree with the idea of stopping the Xarelto Monday meaning not taking it Monday or Monday. On Monday morning prior to the surgery when asked Dr Gomez's team to draw a lupus anticoagulant assay. Today I will draw Factor VIII level lipoprotein a lipid panel, CMP, and depending upon above results further testing might be indicated. The big issue is to get that lupus anticoagulant drawn on Monday when she is got no Xarelto in her system. Dr. Gianfranco Craig documented in this encounter [facility] 10-24-2022 Nurse Note Additional intake questions: Has the patient had fever, nausea, vomiting, diarrhea, constipation, fatigue for > 1 week? No Does the patient have a decreased appetite? No Does patient want to see a Siding Installer? No (yes to any of above refer patient to schedulers for dietitian appointment) ) Does patient have any new or increased numbness or tingling of extremities? No Is patient interested in fertility information? No Does patient need any prescription refills? No Does patient have an advanced directive in place? No, Patient referred to [facility] documented in this encounter [facility] 10-11-2022 Note HNO ID: [id number] Author: Sadia Gomez MD Service: ? Author Type: Physician Type: Progress Notes Filed: 10/11/2022 9:42 AM Note Text: COLORECTAL SURGERY New Patient Visit October 11, 2022 Chief Complaint: anal fistula History of Present Illness: Codi Eli is a 37 year old year old female . 08-10-07 Dr Petit fistula in left anterior done prone, probed and fistula located (no mention where the exact internal opening was in body of dictation but does say in findings left anterior) Fistulotomy done 09-07-20 colonoscopy to cecum. Small sessile polyp-- desc colon PATH adenomatous changes, Cluster of polyps at rectosigmoid, largest was pedunculated and removed (states about 17 smaller and all destroyed or removed) PATH fragments of hyperplastic polyp rectosigmoid at 10 cm She brings pictures of her colonoscopy--It says there is a descending colon polyp but nothing was seen regarding this on the written info I got regarding the path or procedure. Looks small and sessile by picture 08-05-22 partial fistulotomy-6.5 cm fistula tract, no internal opening seen--sounds like there was something posterior that surgeon though was from previous surgery. External opening at 6 oclock a centimeter from anus; injected H2O2 into external opening but nothing internal, eventually a lacrimal probe could be passed toward anus and could feel under surface with finger in anus, but probe would not drop in anus; I think the fistula tract was unroofed as far as the sphincter muscle 08-18-22 office exam could insert angiocath > 4 cm into fistula 09-02-22 office visit ?confesses not able to do recommended twice daily sitz baths and favors showering more BM usually daily. Denies diarrhea and no abdominal pain. currently she has a lot of daily drainage Is she smoker States she quit the beginning of this year History of DVT and is she still on xarelto for history of lupus anticoagulant.- she is still on Xarelto. She was put on the Xarelto for the DVT. She voices she was tested and she has some type of clotting disorder she does not know the name. She saw Dr hBagat and recalls being told to take the xelerto for life She does have pain with defecation She has not been PAST MEDICAL HISTORY Diagnosis Date Chronic rheumatic arthritis (HCC) Deep vein thrombosis (DVT) of popliteal vein of right lower extremity (HCC) Fistula Lupus (HCC) PAST SURGICAL HISTORY Procedure Laterality Date COLONOSCOPY SCREENING 2020 FISTULOTOMY SUBCUT 2004 INSERTION OF IUD PAST SURGICAL HISTORY OF 07/2022 Partial fistulotomy PAST SURGICAL HISTORY OF 2006 Fistulotomy Current Outpatient Medications Medication Sig Dispense Refill rivaroxaban (XARELTO) 20 mg tablet Take 20 mg by mouth daily with dinner. gabapentin (NEURONTIN) 100 mg capsule Take two capsules by mouth at bedtime. cholecalciferol (VITAMIN D3) 50 mcg (2,000 unit) tablet Take two tablets by mouth once daily. levonorgestrel (MIRENA) 20 mcg/24 hr (5 years) IUD Inserted in office 1 Each 0 OMEPRAZOLE ORAL Take by mouth once daily. allopurinol (ZYLOPRIM) 300 mg tablet Take by mouth once daily. colchicine 0.6 mg tablet 1 po q day can decrease to 1 pill every other day if diarrhea folic acid 1 mg tablet Take 1 mg by mouth once daily. methotrexate 2.5 mg tablet Take six tablets by mouth once weekly. No current facility-administered medications for this visit. ALLERGIES Allergen Reactions Enbrel [Etanercept] Rash Social History Tobacco Use Smoking status: Former Packs/day: 0.50 Years: 20.00 Pack years: 10.00 Types: Cigarettes Quit date: 08/2022 Years since quittin.1 Smokeless tobacco: Never Vaping Use Vaping Use: Never used Substance Use Topics Alcohol use: Yes Comment: social Drug use: No Review of Systems / PACC screen: Do you have difficulty climbing a full flight of stairs without feeling short of breath? no Do you require oxygen for your breathing or have your gone to an emergency department because of breathing problems? no Are you on dialysis or have you been told that your kidneys do not work well as they should? no Do have an implanted cardiac device (pacemaker, defibrillator etc.) that has not been checked in the last 6 months? no Have you had an organ transplant? no Have you been told that you had excessive bleeding during surgical procedures or do you take blood thinning medications other than aspirin? yes Xarelto Have you ever had a heart attack, heart stents/surgery, valve problems, or other heart problems? no Have you had a stroke, seizures, or unexplained loss of consciousness? no Do you have a neurologic condition like Parkinson's disease or multiple sclerosis? no Have you or a blood relative had a life-threatening reaction to anesthesia? no Do you have cirrhosis of the liver or other liver disease? no Have you had a blood clot within the past year? no Do you take (more content not included)... [facility] 10-10-2022 Note HNO ID: [id number] Author: Sadia Gomez MD Service: ? Author Type: Physician Type: Progress Notes Filed: 10/10/2022 6:00 AM Note Text: 08-10-07 Dr Petit fistula in left anterior done prone, probed and fistula located (no mention where the exact internal opening was in body of dictation but does say in findings left anterior) Fistulotomy done 09-07-20 colonoscopy to cecum. Small sessile polyp-- desc colon PATH adenomatous changes, Cluster of polyps at rectosigmoid, largest was pedunculated and removed (states about 17 smaller and all destroyed or removed) PATH fragments of hyperplastic polyp rectosigmoid at 10 cm 08-05-22 partial fistulotomy-6.5 cm fistula tract, no internal opening seen--sounds like there was something posterior that surgeon though was from previous surgery. External opening at 6 oclock a centimeter from anus; injected H2O2 into external opening but nothing internal, eventually a lacrimal probe could be passed toward anus and could feel under surface with finger in anus, but probe would not drop in anus; I think the fistula tract was unroofed as far as the sphincter muscle 08-18-22 office exam could insert angiocath > 4 cm into fistula 09-02-22 office visit ?confesses not able to do recommended twice daily sitz baths and favors showering more Is she smoker History of DVT (? In ) and is she still on xarelto for history of lupus anticoagulant Sadia Gomez MD [facility] 10-10-2022 History of Presen t illness Narrative 08-10-07 Dr Petit fistula in left anterior done prone, probed and fistula located (no mention where the exact internal opening was in body of dictation but does say in findings left anterior) Fistulotomy done 09-07-20 colonoscopy to cecum. Small sessile polyp-- desc colon PATH adenomatous changes, Cluster of polyps at rectosigmoid, largest was pedunculated and removed (states about 17 smaller and all destroyed or removed) PATH fragments of hyperplastic polyp rectosigmoid at 10 cm 08-05-22 partial fistulotomy-6.5 cm fistula tract, no internal opening seen--sounds like there was something posterior that surgeon though was from previous surgery. External opening at 6 oclock a centimeter from anus; injected H2O2 into external opening but nothing internal, eventually a lacrimal probe could be passed toward anus and could feel under surface with finger in anus, but probe would not drop in anus; I think the fistula tract was unroofed as far as the sphincter muscle 08-18-22 office exam could insert angiocath > 4 cm into fistula 09-02-22 office visit confesses not able to do recommended twice daily sitz baths and favors showering more Is she smoker History of DVT (? In ) and is she still on xarelto for history of lupus anticoagulant Sadia Gomez MD documented in this encounter [facility] 08-01-2022 Miscellaneous Notes Call to Vika and aware that patient needs to hold Xarelto 24hours prior to procedure and not start back until abscess is healed. Vika denies further questions and will relay information to Dr. Yoon. Aileen Byrnes RN Hold Xarelto before draining of abscess. Resume Xarelto when her abscess is healed. Zachery Bhagat MD OLIVIA Sandy calling for Dr. Yoon office letting us know that patient is scheduled for [facility] drain for a perirectal abscess. Asking if Xarelto needs held prior and for how long. Call back # [phone], option #4 Aileen Byrnes RN documented in [facility] encounter [facility] Clotting disorder (HCC) Other and unspecified coagulation defects Anal fistula [facility] Diagnosis Clotting disorder (HCC)- Primary Other and unspecified coagulation defects Anal fistula [facility] Diagnosis Aftercare following surgery- Primary Encounter for other specified aftercare [facility] Diagnosis Gouty arthropathy- Primary Gouty arthropathy, unspecified Localized osteoarthritis of left ankle Localized osteoarthritis of right ankle Lumbar degenerative disc disease Degeneration of lumbar or lumbosacral intervertebral disc Osteoarthritis of sacroiliac joint Lumbosacral spondylosis without myelopathy Thoracic degenerative disc disease Degeneration of thoracic or thoracolumbar intervertebral disc Lupus anticoagulant positive Other and unspecified nonspecific immunological findings Anti-cyclic citrullinated peptide antibody positive Other and unspecified nonspecific immunological findings Current use of skilled nursing anticoagulation Encounter for long-term (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 Family history of gout Family history of other endocrine and metabolic diseases History of DVT (deep vein thrombosis) Personal history of venous thrombosis and embolism History of rheumatoid arthritis Personal history of arthritis History of systemic lupus erythematosus (SLE) Personal history of other endocrine, metabolic, and immunity disorders intermediate current use of systemic steroids Encounter for long-term (current) use of steroids Long-term use of high-risk medication Methotrexate, skilled nursing, current use Encounter for long-term (current) use of other medications Noncompliance Personal history of noncompliance with medical treatment, presenting hazards to health Patient non adherence Personal history of noncompliance with medical treatment, presenting hazards to health Positive double stranded DNA antibody test Other and unspecified nonspecific immunological findings SS-B antibody positive Other and unspecified nonspecific immunological findings SS-A antibody positive Other and unspecified nonspecific immunological findings Vitamin D deficiency Unspecified vitamin D deficiency Hyperuricemia Other abnormal blood chemistry Acute pain of right knee Carpal tunnel syndrome of right wrist Carpal tunnel syndrome Calcaneal spur of foot, left [facility] Diagnosis Gouty arthropathy Gouty arthropathy, unspecified Localized osteoarthritis of left ankle Localized osteoarthritis of right ankle Lumbar degenerative disc disease Degeneration of lumbar or lumbosacral intervertebral disc Osteoarthritis of sacroiliac joint Lumbosacral spondylosis without myelopathy Thoracic degenerative disc disease Degeneration of thoracic or thoracolumbar intervertebral disc Lupus anticoagulant positive Other and unspecified nonspecific immunological findings Anti-cyclic citrullinated peptide antibody positive Other and unspecified nonspecific immunological findings Current use of watermaster anticoagulation Encounter for long-term (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 Family history of gout Family history of other endocrine and metabolic diseases History of DVT (deep vein thrombosis) Personal history of venous thrombosis and embolism History of rheumatoid arthritis Personal history of arthritis History of systemic lupus erythematosus (SLE) Personal history of other endocrine, metabolic, and immunity disorders intermediate current use of systemic steroids Encounter for long-term (current) use of steroids Long-term use of high-risk medication Methotrexate, skilled nursing, current use Encounter for long-term (current) use of other medications Noncompliance Personal history of noncompliance with medical treatment, presenting hazards to health Patient non adherence Personal history of noncompliance with medical treatment, presenting hazards to health Positive double stranded DNA antibody test Other and unspecified nonspecific immunological findings SS-B antibody positive Other and unspecified nonspecific immunological findings SS-A antibody positive Other and unspecified nonspecific immunological findings Vitamin D deficiency Unspecified vitamin D deficiency Hyperuricemia Other abnormal blood chemistry Acute pain of right knee Carpal tunnel syndrome of right wrist Carpal tunnel syndrome Calcaneal spur of foot, left [facility] Rheumatoid arthritis involving multiple sites with positive rheumatoid factor- Primary Anti-cyclic citrullinated peptide antibody positive Other and unspecified nonspecific immunological findings Current use of watermaster anticoagulation Encounter for long-term (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 Family history of gout Family history of other endocrine and metabolic diseases History of DVT (deep vein thrombosis) Personal history of venous thrombosis and embolism History of rheumatoid arthritis Personal history of arthritis History of systemic lupus erythematosus (SLE) Personal history of other endocrine, metabolic, and immunity disorders intermediate current use of non-steroidal anti-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 (NSAID) Encounter for long-term (current) use of non-steroidal anti-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 intermediate current use of systemic steroids Encounter for long-term (current) use of steroids Long-term use of high-risk medication Positive double stranded DNA antibody test Other and unspecified nonspecific immunological findings SS-A antibody positive Other and unspecified nonspecific immunological findings SS-B antibody positive Other and unspecified nonspecific immunological findings Vitamin D deficiency Unspecified vitamin D deficiency Hyperglycemia Other abnormal glucose Hyperuricemia Other abnormal blood chemistry Carpal tunnel syndrome of right wrist Carpal tunnel syndrome Calcaneal spur of foot, left Gouty arthropathy Gouty arthropathy, unspecified Localized osteoarthritis of left ankle Localized osteoarthritis of right ankle Lumbar degenerative disc disease Degeneration of lumbar or lumbosacral intervertebral disc Lumbar spondylosis Lumbosacral spondylosis without myelopathy Osteoarthritis of sacroiliac joint Lumbosacral spondylosis without myelopathy Primary osteoarthritis of right hip Primary localized osteoarthrosis, pelvic region and thigh Primary osteoarthritis of right knee Primary localized osteoarthrosis, lower leg Thoracic degenerative disc disease Degeneration of thoracic or thoracolumbar intervertebral disc Lupus anticoagulant positive Other and unspecified nonspecific immunological findings [facility] Diagnosis Blood in stool- Primary [facility] Diagnosis Rheumatoid arthritis involving multiple sites with positive rheumatoid factor- Primary Lupus anticoagulant positive Other and unspecified nonspecific immunological findings SS-B antibody positive Other and unspecified nonspecific immunological findings SS-A antibody positive Other and unspecified nonspecific immunological findings Positive double stranded DNA antibody test Other and unspecified nonspecific immunological findings Long-term use of high-risk medication intermediate current use of non-steroidal anti-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 (NSAID) Encounter for long-term (current) use of non-steroidal anti-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 Hyperproteinemia Other disorders of plasma protein metabolism History of systemic lupus erythematosus (SLE) Personal history of other endocrine, metabolic, and immunity disorders History of DVT (deep vein thrombosis) Personal history of venous thrombosis and embolism Family history of gout Family history of other endocrine and metabolic diseases Current use of watermaster anticoagulation Encounter for long-term (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 Anti-cyclic citrullinated peptide antibody positive Other and unspecified nonspecific immunological findings Vitamin D deficiency Unspecified vitamin D deficiency Hyperglycemia Other abnormal glucose Carpal tunnel syndrome of right wrist Carpal tunnel syndrome Thoracic degenerative disc disease Degeneration of thoracic or thoracolumbar intervertebral disc Primary osteoarthritis of right knee Primary localized osteoarthrosis, lower leg Primary osteoarthritis of right hip Primary localized osteoarthrosis, pelvic region and thigh Osteoarthritis of sacroiliac joint Lumbosacral spondylosis without myelopathy Lumbar spondylosis Lumbosacral spondylosis without myelopathy Lumbar degenerative disc disease Degeneration of lumbar or lumbosacral intervertebral disc Localized osteoarthritis of right ankle Localized osteoarthritis of left ankle Gouty arthropathy Gouty arthropathy, unspecified Calcaneal spur of foot, left History of rheumatoid arthritis Personal history of arthritis intermediate current use of systemic steroids Encounter for long-term (current) use of steroids Hyperuricemia Other abnormal blood chemistry documented in this encounter [facility] for referral (narrative)* Outpatient Procedure (Routine) - Authorized Specialty Diagnoses / Procedures Referred By Fletcher biswas Referred To Contact [facility] Diagnoses Blood in stool Procedures EGD DIAGNOSTIC ESOPHAGOGASTRODUODENOSC OPY TRANSORAL DIAGNOSTIC Christina Awad MD, PhD [address] [id number] [facility] [address] [place] [id number] Referral ID Status Reason Start Date Expiration Date Visits Requested Visits Authorized [id number] Authorized Auto-Generat ed Referral 07/14/2023 07/14/2024 1 1 * Outpatient Procedure (Routine) - Authorized Specialty Diagnoses / Procedures Referred By Contac t Referred To Contact [facility] Diagnoses Blood in stool Procedures COLONOSCOPY DIAGNOSTIC COLONOSCOPY FLX DX W/COLLJ SPEC WHEN Christina Pop MD, PhD [address] [facility] [address] [place], [place] [id number] [facility] [address] [place] [address] Referral ID Status Reason Start Date Expiration Date Visits Requested Visits Authorized [id number] Authorized Auto-Generat ed Referral 07/14/2023 07/14/2024 [address] [facility] Summary Purpose Family History No Family History Records Found Cervical Cancer Status:Active Comments:Mother. Coronary Artery Disease Status:Active Comments :Maternal Grandfather. Paternal Grandfather. Hypertension Status:Active Comments:Mother. Lupus Erythematosus, Systemic Status:Active Co mments:Paternal Grandmother. Cervical Cancer Status:Active Comments:Mother. Coronary Artery Disease Status:Active Comments :Maternal Grandfather. Paternal Grandfather. Hypertension Status:Active Comments:Mother. Lupus Erythematosus, Systemic Status:Active Co mments:Paternal Grandmother. Cervical Cancer Status:Active Comments:Mother. Coronary Artery Disease Status:Active Comments :Maternal Grandfather. Paternal Grandfather. Hypertension Status:Active Comments:Mother. Lupus Erythematosus, Systemic Status:Active Co mments:Paternal Grandmother. Cervical Cancer Status:Active Comments:Mother. Coronary Artery Disease Status:Active Comments :Maternal Grandfather. Paternal Grandfather. Hypertension Status:Active Comments:Mother. Lupus Erythematosus, Systemic Status:Active Co mments:Paternal Grandmother. Cervical Cancer Status:Active Comments:Mother. Coronary Artery Disease Status:Active Comments :Maternal Grandfather. Paternal Grandfather. Hypertension Status:Active Comments:Mother. Lupus Erythematosus, Systemic Status:Active Co mments:Paternal Grandmother. Cervical Cancer Status:Active Comments:Mother. Coronary Artery Disease Status:Active Comments :Maternal Grandfather. Paternal Grandfather. Hypertension Status:Active Comments:Mother. Lupus Erythematosus, Systemic Status:Active Co mments:Paternal Grandmother. Cervical Cancer Status:Active Comments:Mother. Coronary Artery Disease Status:Active Comments :Maternal Grandfather. Paternal Grandfather. Hypertension Status:Active Comments:Mother. Lupus Erythematosus, Systemic Status:Active Co mments:Paternal Grandmother. Cervical Cancer Status:Active Comments:Mother. Coronary Artery Disease Status:Active Comments :Maternal Grandfather. Paternal Grandfather. Hypertension Status:Active Comments:Mother. Lupus Erythematosus, Systemic Status:Active Co mments:Paternal Grandmother. Cervical Cancer Status:Active Comments:Mother. Coronary Artery Disease Status:Active Comments :Maternal Grandfather. Paternal Grandfather. Hypertension Status:Active Comments:Mother. Lupus Erythematosus, Systemic Status:Active Co mments:Paternal Grandmother. Advance Directives No Advanced Directives Records FoundNo Advanced Directives Records FoundNo Advanced Directives Records FoundNo Advanced Directives Records FoundNo Advanced Directives Records FoundNo Advanced Directives Records FoundNo Advanced Directives Records FoundNo Advanced Directives Records Found Reason for Referral Specialty Diagnoses / Procedures Referred By Fletcher biswas Referred To Contact Diagnoses Clotting disorder (HCC) Procedures CONSULT TO HEMATOLOGY/ONCOLOGY OFFICE/OUTPATIENT [facility] 60-74 MINUTES Sadia Gomez MD [address] [place] [address] Referral ID Status Reason Start Date Expiration Date Visits Requested Visits Authorized [id number] Pending Review PCP Requested Referral 10/12/2022 10/12/2023 1 1 Specialty Diagnoses / Procedures Referred By Fletcher biswas Referred To Contact Diagnoses 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 Current use of skilled nursing anticoagulation Family history of gout History of DVT (deep vein thrombosis) History of rheumatoid arthritis History of systemic lupus erythematosus (SLE) 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 (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) 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, DO [address] [place] [address] Referral ID Status Reason Start Date Expiration Date V isits Requested Visits Authorized [id number] Pending Review 1 1 Specialty Diagnoses / Procedures Referred By Contac t Referred To Contact Multispecialty Diagnoses 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 Current use of watermaster anticoagulation Family history of gout History of DVT (deep vein thrombosis) History of rheumatoid arthritis History of systemic lupus erythematosus (SLE) 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 (NSAID) 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, DO [address] [place] [address] Bertrand Sumner MD [address] [place] [address] Referral ID Status Reason Start Date Expiration Date V isits Requested Visits Authorized [id number] New Request 05/19/2023 06/12/2024 1 1 Specialty Diagnoses / Procedures Referred By Contac t Referred To Contact Diagnoses Rheumatoid arthritis involving multiple sites with positive rheumatoid factor Lupus anticoagulant positive SS-B antibody positive SS-A antibody positive Positive double stranded DNA antibody test Long-term use of high-risk medication intermediate current use of non-steroidal anti-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 (NSAID) History of systemic lupus erythematosus (SLE) History of DVT (deep vein thrombosis) Family history of gout Current use of watermaster anticoagulation Anti-cyclic citrullinated peptide antibody positive Vitamin D deficiency Hyperglycemia Carpal tunnel syndrome of right wrist Thoracic degenerative disc disease Primary osteoarthritis of right knee Primary osteoarthritis of right hip Osteoarthritis of sacroiliac joint Lumbar spondylosis Lumbar degenerative disc disease Localized osteoarthritis of right ankle Localized osteoarthritis of left ankle Gouty arthropathy Calcaneal spur of foot, left History of rheumatoid arthritis 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 Hyperuricemia Flori Matthews, Keren Mckinney, DO [address] [place] [address] Referral ID Status Reason Start Date Expiration Date V isits Requested Visits Authorized [id number] Pending Review 1 1 Additional Source Comments INFORMATION SOURCE (unrecogn ized section and content) DATE CREATED AUTHOR AUTHOR'S ORGANIZ ATION 09/08/2020 [facility] ([place]) DATE CREATED AUTHOR AUTHOR'S ORGANIZ ATION 09/15/2021 [facility] DATE CREATED AUTHOR AUTHOR'S ORGANIZ ATION 03/30/2023 [facility] DATE CREATED AUTHOR AUTHOR'S ORGANIZ ATION 07/25/2023 [facility] DATE CREATED AUTHOR AUTHOR'S ORGANIZ ATION 09/06/2023 [facility] DATE CREATED AUTHOR AUTHOR'S ORGANIZ ATION 09/10/2023 [facility] DATE CREATED AUTHOR AUTHOR'S ORGANIZ ATION 09/11/2023 [facility] Source Comments (unrecognize d section and content) In the event this informatio n is protected by the Federal Confidentiality of Alcohol and Drug Abuse Patient Records regulations: The Federal rules restrict any use of the information to criminally investigate or prosecute any alcohol or drug abuse patient.[facility] the event this information is protected by the Federal Confidentiality of Alcohol and Drug Abuse Patient Records regulations: The Federal rules restrict any use of the information to criminally investigate or prosecute any alcohol or drug abuse patient.[facility] the event this information is protected by the Federal Confidentiality of Alcohol and Drug Abuse Patient Records regulations: The Federal rules restrict any use of the information to criminally investigate or prosecute any alcohol or drug abuse patient.[facility] the event this information is protected by the Federal Confidentiality of Alcohol and Drug Abuse Patient Records regulations: The Federal rules restrict any use of the information to criminally investigate or prosecute any alcohol or drug abuse patient.[facility] the event this information is protected by the Federal Confidentiality of Alcohol and Drug Abuse Patient Records regulations: The Federal rules restrict any use of the information to criminally investigate or prosecute any alcohol or drug abuse patient.[facility] the event this information is protected by the Federal Confidentiality of Alcohol and Drug Abuse Patient Records regulations: The Federal rules restrict any use of the information to criminally investigate or prosecute any alcohol or drug abuse patient.[facility] the event this information is protected by the Federal Confidentiality of Alcohol and Drug Abuse Patient Records regulations: The Federal rules restrict any use of the information to criminally investigate or prosecute any alcohol or drug abuse patient.[facility] the event this information is protected by the Federal Confidentiality of Alcohol and Drug Abuse Patient Records regulations: The Federal rules restrict any use of the information to criminally investigate or prosecute any alcohol or drug abuse patient.[facility] the event this information is protected by the Federal Confidentiality of Alcohol and Drug Abuse Patient Records regulations: The Federal rules restrict any use of the information to criminally investigate or prosecute any alcohol or drug abuse patient.[facility] the event this information is protected by the Federal Confidentiality of Alcohol and Drug Abuse Patient Records regulations: The Federal rules restrict any use of the information to criminally investigate or prosecute any alcohol or drug abuse patient.[facility] the event this information is protected by the Federal Confidentiality of Alcohol and Drug Abuse Patient Records regulations: The Federal rules restrict any use of the information to criminally investigate or prosecute any alcohol or drug abuse patient.[facility] the event this information is protected by the Federal Confidentiality of Alcohol and Drug Abuse Patient Records regulations: The Federal rules restrict any use of the information to criminally investigate or prosecute any alcohol or drug abuse patient.[facility] the event this information is protected by the Federal Confidentiality of Alcohol and Drug Abuse Patient Records regulations: The Federal rules restrict any use of the information to criminally investigate or prosecute any alcohol or drug abuse patient.[facility] Reason for Visit (unrecogniz ed section and content) Reason Comments Consult Specialty Diagnoses / Procedures Referred By Fletcher t Referred To Contact Diagnoses Clotting disorder (HCC) Procedures CONSULT TO HEMATOLOGY/ONCOLOGY OFFICE/OUTPATIENT [facility] 60-74 MINUTES Sadia Gomez MD [address] [place] [address] Referral ID Status Reason Start Date Expiration Date Visits Requested Visits Authorized [id number] Pending Review PCP Requested Referral 10/12/2022 10/12/2023 1 1 Reason Comments Results cleared for surgery. Emailed Dr. Gomez. Off xarelto, as of today. Assuming surgery goes OK, would resume xarelto day after surgery. Her rheum numbers are quite high, but she feels OK. Followed by Dr. Ruby, local rheum, and I have a call into him. Would just ask Dr. Gomez's team to draw a lupus anticoagulant panel on her prior to the surgery on Monday. Eros MANUEL Reason Comments Post Op Reason Comments Follow-up Patient is an add on for today, last seen 02/08/2021. Patient states she has not been good since her last appointment. Patient states she has been off the Humira more than a year Reason Comments Follow-up Patient is here for 4 week F/U. Patient states that she sore all over. States that feet, hands, and right shoulder hurt the most. Reason Comments Follow Up Reason Comments Follow-up Patient is here for 2 month Follow-up. Patient states she has not been doing well. States she is having a lot of pain. States there is a lot of swelling. States she is having trouble sleeping. Reason Comments Patient Update Care Teams (unrecognized sec tion and content) Bisque Placer Relationship Specialty Start Date End Date Brianna Mccollum [address] [place] [address] PCP - General Family Medicine 05/27/19 Bisque Placer Relationship Specialty Start Date End Date Brianna Mccollum [address] [place] [address] PCP - General Family Medicine 05/27/19 Bisque Placer Relationship Specialty Start Date End Date Brianna Mccollum [address] [place] [address] PCP - General Family Medicine 05/27/19 Bisque Placer Relationship Specialty Start Date End Date Brianna Mccollum [address] [place] [address] PCP - General Family Medicine 05/27/19 Bisque Placer Relationship Specialty Start Date End Date Brianna Mccollum [address] [place] [address] PCP - General Family Medicine 05/27/19 Bisque Placer Relationship Specialty Start Date End Date Brianna Mccollum PA-C [address] [place] [phone] PCP - General Physician Laundry Machine Operator 01/21/19 Brianna Mccollum PA-C [address] [place] [phone] Physician Laundry Machine Operator 01/21/19 Bisque Placer Relationship Specialty Start Date End Date Brianna Mccollum PA-C [address] [place] [phone] PCP - General Physician Laundry Machine Operator 01/21/19 Brianna Mccollum PA-C [address] [place] [phone] Physician Laundry Machine Operator 01/21/19 Bisque Placer Relationship Specialty Start Date End Date Brianna Mccollum PA-C [address] [place] [phone] PCP - General Physician Laundry Machine Operator 01/21/19 Brianna Mccollum PA-C [address] [place] [phone] Physician Laundry Machine Operator 01/21/19 Bisque Placer Relationship Specialty Start Date End Date Brianna Mccollum [address] [place] [address] PCP - General Family Medicine 05/27/19 Bisque Placer Relationship Specialty Start Date End Date Brianna Mccollum PA-C [address] [place] [phone] PCP - General Physician Laundry Machine Operator 01/21/19 Brianna Mccollum PA-C [address] [place] [phone] Physician Laundry Machine Operator 01/21/19 Bisque Placer Relationship Specialty Start Date End Date Brianna Mccollum [address] [place] [address] PCP - General Family Medicine 05/27/19 <item> Privacy Markings (unrecogniz ed section and content) Section Author: Nica Malhotra PROHIBITION ON REDISCLOSURE OF CONFIDENTIAL INFORMATION This notice accompanies a disclosure of information concerning a client made to you with the consent of such client. FOR RECORDS PERTAINING TO PATIENTS WHO ARE OR HAVE BEEN ENROLLED IN A CHEMICAL DEPENDENCY/SUBSTANCEABUSE PROGRAM, SOME INFORMATION MAY BE OMITTED. This clinical summary was aggregated from multiple sources. Caution should be exercised in using it in the provision of clinical care. This summary normalizes information from multiple sources, and as a consequence, information in this document may materially change the coding, format and clinical context of patient data. In addition, data may be omitted in some cases. CLINICAL DECISIONS SHOULD BE BASED ON THE PRIMARY CLINICAL RECORDS. [facility] [employer] [facility]. provides no warranty or guarantee of the accuracy or completeness of information in this document.
[2023-09-13 17:10] LABS: Anion Gap 3 (5-15); BUN 13 mg/dL (7-18); Calcium,Total 8.6 mg/dL (8.5-10.1); Chloride 99 mmol/L (98-107); Creatinine, Serum 0.76 mg/dL (0.55-1.02); EST Glomerular Filtration Rate 90 mL/min (>60); Est Glom Filt Rate - Afr Amer 108 mL/min (>60); Glucose 130 mg/dL (74-106); Potassium 3.4 mmol/L (3.5-5.1); Sodium Level 134 mmol/L (136-145)
== END | disposition home or self-care (01) ==
PROVIDERS: PCP Physician Assistant; Referring Provider Physician Assistant; Visit Provider Physician Assistant
DX: R60.9 Edema, unspecified (principal)
CPT/HCPCS: 36415; 80048

== ENCOUNTER → 2024-03-12 | Outpatient (CLI) | payer OTHER, SELFPAY ==
[2024-03-12 16:55] LABS: BUN 9 mg/dL (7-18); Creatinine, Serum 0.71 mg/dL (0.55-1.02); EST Glomerular Filtration Rate 97 mL/min (>60); Est Glom Filt Rate - Afr Amer 118 mL/min (>60)
== END | disposition home or self-care (01) ==
LOC: LAB 15:48
PROVIDERS: PCP Physician Assistant; Referring Provider Physician Assistant; Visit Provider Physician Assistant
DX: Z01.812 Encounter for preprocedural laboratory examination (principal)
CPT/HCPCS: 36415; 82565; 84520

== ENCOUNTER → 2024-07-30 | Outpatient (CLI) | payer OTHER, SELFPAY ==
--- NOTE | 2024-07-30 15:42 | BI_ITS ---
MAMMOGRAPHY - BILATERAL SCREENING REASON FOR EXAM: Female, 39 years old. Routine annual screening examination. PERTINENT HISTORY: Non-contributory. TECHNIQUE: Digital bilateral breast jordy (3D mammographic acquisition) in the CC and MLO projections. 2-D mediolateral oblique (MLO) and craniocaudad (CC) views of both breasts were obtained. CAD: Full Field Digital Mammography with Computer Added Detection was performed. COMPARISON: None. Baseline examination. FINDINGS: Breast Composition: The breasts are almost entirely fatty. There are no dominant masses or suspicious calcifications. Small bilateral fat containing axillary lymph nodes. No other significant abnormalities are identified. BI/SCRN MAMM (CAD)W/JORDY BILAT IMPRESSION: Negative screening mammogram. Yearly followup mammogram recommended. (A) ASSESSMENT CATEGORY: BIRADS Category 2: Benign. A letter regarding these results will be sent to the patient by the facility within 30 days. Approximately 10% of breast cancers are not detected by mammography. A normal mammogram should not delay biopsy of a clinically suspicious abnormality. [id number] Electronically Signed: Chun Caal MD at 8:15 EST ,
== END | disposition home or self-care (01) ==
LOC: OPBI 15:41
PROVIDERS: PCP Physician Assistant; Referring Provider Physician Assistant; Visit Provider Physician Assistant
DX: Z12.31 Encounter for screening mammogram for malignant neoplasm of breast (principal)
CPT/HCPCS: 77063; 77067